=== PATIENT | male | born 1945 | race Caucasian/White ===

== ENCOUNTER 2022-05-29 21:49 | Inpatient (IN) | payer MEDICARE, BC ==
[~2022-05-29] VITALS: Ht 170.2 cm; Wt 103.0 kg
[2022-05-29 23:49] LABS: HEMATOCRIT. 28.2 % (42.0-52.0); HEMOGLOBIN. 8.8 g/dL (14.0-18.0); MEAN CORPUSCULAR HEMOGLOBIN 24.7 pg (28.0-32.0); MEAN PLATELET VOLUME 8.9 fl (7.4-10.4); PLATELET 265 x1000/uL (130-400); RED BLOOD CELL COUNT 3.57 mill/uL (4.7-6.1); RED CELL DISTRIBUTION WIDTH 22.9 % (11.6-14.6)
[2022-05-30] MEDS ORDERED: ASPIRIN 325MG EC TABLET PO ONE
[2022-05-30] MEDS ORDERED: VANCOMYCIN 1G PREMIX 200 ML IV NR (01:15)
[2022-05-30] MEDS ORDERED: PIPERACILLIN/TAZOBACTAM 3.375GM/50ML PREMIX IV NR (01:15)
[2022-05-30 02:28] LABS: PLATELET ESTIMATE NORMAL
[2022-05-30 04:31] LABS: CHLORIDE 85 mEq/L (98-107)
[2022-05-30] MEDS ORDERED: POTASSIUM CHLORIDE INJ 40 MEQ in DEXT 5% WATER 500 ML IV ONE (04:45)
[2022-05-30] MEDS ORDERED: POTASSIUM CHLORIDE 20MEQ TABLET SR PO NR (04:45)
[2022-05-30] MEDS: KCL 10MEQ/50ML PREMIX 50 ML IV NR ×3 (05:30→08:30)
[2022-05-30] MEDS ORDERED: IOHEXOL-350 100 ML BOTTLE ONE (06:03)
[2022-05-30] MEDS ORDERED: DILTIAZEM HCL 125 MG in DEXT 5% WATER 100 ML IV PRN (09:30)
[2022-05-30] MEDS ORDERED: PHENYLEPHRINE 100 MG in DEXT 5% WATER 240 ML IV PRN ×2 (09:30→09:45)
[2022-05-30] MEDS ORDERED: PIPERACILLIN/TAZOBACTAM 3.375GM/50ML PREMIX IV ONE (10:00)
[2022-05-30] MEDS: MIDODRINE HCL 5MG TABLET PO SCH ×3 (10:09→17:34)
[2022-05-30 11:21] LABS: HEMATOCRIT. 27.1 % (42.0-52.0); HEMOGLOBIN. 8.2 g/dL (14.0-18.0); MEAN PLATELET VOLUME 8.9 fl (7.4-10.4); PLATELET 228 x1000/uL (130-400); RED BLOOD CELL COUNT 3.43 mill/uL (4.7-6.1)
[2022-05-30] MEDS: DILTIAZEM HCL 60MG TABLET PO SCH ×2 (11:56→18:57)
[2022-05-30 13:00] LABS: PLATELET ESTIMATE NORMAL
[2022-05-30] MEDS ORDERED: ACETAMINOPHEN 325MG TABLET PO PRN ×2 (13:30→14:15)
[2022-05-30] MEDS ORDERED: DIPHENHYDRAMINE 50MG/ML VIAL IV NR (14:00)
[2022-05-30] MEDS ORDERED: PIPERACILLIN/TAZOBACTAM 3.375G in DEXT 5% WATER 50ML IV SCH (14:00)
[2022-05-30] MEDS ORDERED: HALOPERIDOL LACTATE 5MG/ML VIAL IM NR (14:00)
[2022-05-30] MEDS ORDERED: ONDANSETRON HCL 4MG/2ML INJ IV PRN (14:15)
[2022-05-30] MEDS: METRONIDAZOLE 500 MG PREMIX 100 ML IV SCH ×2 (14:35→21:50)
[2022-05-30] MEDS: PANTOPRAZOLE SODIUM 40 MG/VIAL IV SCH (15:00)
[2022-05-30] MEDS: SODIUM CHLORIDE 0.9% 1,000 ML IV SCH ×2 (15:01→22:32)
[2022-05-30] MEDS: MORPHINE SULFATE 2 MG/ML CPJ (NOT FOR IM USE) IV PRN ×2 (15:01→20:58)
[2022-05-30 18:04] LABS: CLARITY URINE CLEAR (CLEAR); COLOR URINE DARK YELLOW (YELLOW); KETONES URINE NEGATIVE (NEGATIVE); LEUKOCYTE ESTERASE URINE NEGATIVE (NEGATIVE); NITRITE URINE NEGATIVE (NEGATIVE); OCCULT BLOOD URINE NEGATIVE (NEGATIVE); PH URINE 5.5 (4.5-8.0); PROTEIN URINE TRACE (NEGATIVE); SPECIFIC GRAVITY URINE 1.045 (1.005-1.030)
[2022-05-30] MEDS: VANCOMYCIN 1000MG/20ML ORAL SOLN PO SCH (18:57)
[2022-05-30] MEDS: CEFEPIME 1,000 MG in DEXTROSE 5% WATER 50 ML IV SCH (18:57)
[2022-05-30] MEDS ORDERED: VANCOMYCIN 1G PREMIX 200 ML IV SCH (20:00)
[2022-05-30] MEDS ORDERED: NALOXONE HCL 0.4MG/ML VIAL IV PRN (20:45)
[2022-05-30 20:48] LABS: CHLORIDE 91 mEq/L (98-107)
[2022-05-30] MEDS ORDERED: GABAPENTIN 300MG CAPSULE PO SCH (21:00)
[2022-05-30 21:24] LABS: ETHANOL BLOOD < 10 mg/dL
[2022-05-30] MEDS: ATORVASTATIN CALCIUM 40MG TABLET PO SCH (21:50)
[2022-05-30 23:57] LABS: *AMPHETAMINES SCREEN URINE NEGATIVE (NEGATIVE); *BARBITURATES SCREEN URINE NEGATIVE (NEGATIVE); *BENZODIAZEPINES SCREEN URINE NEGATIVE (NEGATIVE); *COCAINE SCREEN URINE NEGATIVE (NEGATIVE); CANNABINOID URINE SCREEN NEGATIVE (NEGATIVE); METHADONE URINE SCREEN NEGATIVE (NEGATIVE); OPIATES URINE SCREEN PRESUMTIVE POSITIVE (NEGATIVE); PHENCYCLIDINE URINE SCREEN NEGATIVE (NEGATIVE)
[2022-05-31] VITALS (32 sets, daily range): BP systolic 70–164; BP diastolic 36–151
[2022-05-31] MEDS: DILTIAZEM HCL 60MG TABLET PO SCH ×5 (00:35→23:50)
[2022-05-31] MEDS: VANCOMYCIN 1000MG/20ML ORAL SOLN PO SCH ×5 (00:36→23:49)
[2022-05-31] MEDS: [UNRECOGNIZED DRUG - OTHER] IV SCH ×2 (01:10→04:14)
[2022-05-31] MEDS: MORPHINE SULFATE 2 MG/ML CPJ (NOT FOR IM USE) IV PRN ×3 (04:06→19:45)
[2022-05-31] MEDS: METRONIDAZOLE 500 MG PREMIX 100 ML IV SCH ×3 (06:00→21:53)
[2022-05-31 08:56] LABS: BG BASE EXCESS 2.2 mmol/L (-2.0-2.0); BG CARBOXYHEMOGLOBIN 1.1 % (0.5-1.5); BG DEOXYHEMOGLOBIN 8.1 % (0.0-5.0); BG HCO3 ACT 26.3 mmol/L (22.0-26.0); BG METHEMOGLOBIN 0.3 % (0.0-1.5); BG OXYGEN SATURATION 91.8 % (92.0-98.5); BG OXYHEMOGLOBIN 90.5 % (94.0-97.0); BG PCO2 38.9 mmHg (35.0-45.0); BG PH 7.448 (7.350-7.450); BG PO2 65.3 mmHg (75.0-100.0); BG SAMPLE SITE RIGHT RADIAL; BG TOTAL HEMOGLOBIN 9.1 g/dL (12.0-18.0); BG VENT MODE NASAL CANNULA
[2022-05-31] MEDS ORDERED: DEXT 5%/0.9% NACL KCL 30MEQ/L 1,000 ML IV SCH (09:00)
[2022-05-31] MEDS: MIDODRINE HCL 5MG TABLET PO SCH ×3 (09:00→17:21)
[2022-05-31] MEDS ORDERED: LIDOCAINE HCL 1% 30ML VIAL (10MG/ML) ONE (09:15)
[2022-05-31] MEDS ORDERED: POTASSIUM CHLORIDE INJ 30 MEQ in DEXT 5%/0.9% NACL 1,000 ML IV SCH (09:30)
[2022-05-31] MEDS: ASPIRIN 81MG TABLET PO SCH (10:04)
[2022-05-31] MEDS: PANTOPRAZOLE SODIUM 40 MG/VIAL IV SCH (10:05)
[2022-05-31] MEDS: CEFEPIME 1,000 MG in DEXTROSE 5% WATER 50 ML IV SCH ×2 (10:05→18:00)
[2022-05-31 10:38] LABS: HEMATOCRIT. 26.4 % (42.0-52.0); MEAN CORPUSCULAR HEMOGLOBIN 24.1 pg (28.0-32.0); MEAN PLATELET VOLUME 9.2 fl (7.4-10.4); PLATELET 230 x1000/uL (130-400); RED BLOOD CELL COUNT 3.31 mill/uL (4.7-6.1)
[2022-05-31] MEDS: AMIODARONE HCL 200 MG TABLET PO SCH ×2 (11:00→21:53)
[2022-05-31 11:35] LABS: PLATELET ESTIMATE NORMAL
[2022-05-31] MEDS ORDERED: FUROSEMIDE 40MG/4ML VIAL IVP NR (12:00)
[2022-05-31] MEDS ORDERED: POTASSIUM CHLORIDE INJ 40 MEQ in DEXT 5% WATER 250 ML IV NR (13:00)
[2022-05-31 19:57] LABS: CHLORIDE 95 mEq/L (98-107)
[2022-05-31 20:05] LABS: CREATINE KINASE 406 IU/L (39-308); PHOSPHORUS 2.7 mg/dL (2.5-4.9)
[2022-05-31] MEDS: IPRATROPIUM/ALBUTEROL 0.5-3(2.5)MG/3ML NEB HHN SCH (20:15)
[2022-05-31] MEDS: GABAPENTIN 300MG CAPSULE PO SCH (21:52)
[2022-05-31] MEDS: ATORVASTATIN CALCIUM 40MG TABLET PO SCH (21:53)
[2022-05-31 22:19] LABS: CHLORIDE 97 mEq/L (98-107)
[2022-05-31] MEDS ORDERED: POTASSIUM CHLORIDE 20MEQ TABLET SR PO NR (23:30)
[2022-05-31] MEDS ORDERED: MAGNESIUM 2 G PREMIX 50 ML IV NR (23:30)
[2022-06-01] VITALS (32 sets, daily range): BP systolic 98–132; BP diastolic 24–72
[2022-06-01 00:13] LABS: CHLORIDE 97 mEq/L (98-107)
[2022-06-01] MEDS: IPRATROPIUM/ALBUTEROL 0.5-3(2.5)MG/3ML NEB HHN SCH ×4 (02:04→20:49)
[2022-06-01] MEDS: MORPHINE SULFATE 2 MG/ML CPJ (NOT FOR IM USE) IV PRN ×4 (03:31→22:47)
[2022-06-01 06:30] LABS: HEMATOCRIT. 23.6 % (42.0-52.0); HEMOGLOBIN. 7.4 g/dL (14.0-18.0); MEAN CORPUSCULAR HEMOGLOBIN 25.1 pg (28.0-32.0); MEAN CORPUSCULAR VOLUME 80.3 fL (80.0-94.0); MEAN PLATELET VOLUME 9.2 fl (7.4-10.4); PLATELET 156 x1000/uL (130-400); RED BLOOD CELL COUNT 2.94 mill/uL (4.7-6.1); RED CELL DISTRIBUTION WIDTH 22.5 % (11.6-14.6)
[2022-06-01 06:33] LABS: INR 1.1; PROTHROMBIN TIME 12.1 sec (9.6-11.0)
[2022-06-01] MEDS: VANCOMYCIN 1000MG/20ML ORAL SOLN PO SCH ×3 (06:46→18:54)
[2022-06-01] MEDS: CEFEPIME 1,000 MG in DEXTROSE 5% WATER 50 ML IV SCH ×2 (06:46→18:54)
[2022-06-01] MEDS: DILTIAZEM HCL 60MG TABLET PO SCH ×3 (06:47→17:02)
[2022-06-01] MEDS: METRONIDAZOLE 500 MG PREMIX 100 ML IV SCH ×3 (06:47→22:12)
[2022-06-01 08:18] LABS: BG BASE EXCESS 6.9 mmol/L (-2.0-2.0); BG FRACTION INSPIRED OXYGEN 38; BG HCO3 ACT 31.1 mmol/L (22.0-26.0); BG METHEMOGLOBIN 0.2 % (0.0-1.5); BG OXYGEN SATURATION 90.9 % (92.0-98.5); BG OXYHEMOGLOBIN 89.8 % (94.0-97.0); BG PCO2 42.7 mmHg (35.0-45.0); BG PO2 60.3 mmHg (75.0-100.0); BG SAMPLE SITE LEFT RADIAL; BG TOTAL HEMOGLOBIN 8.7 g/dL (12.0-18.0); BG VENT MODE NASAL CANNULA
[2022-06-01 08:38] LABS: CHLORIDE 98 mEq/L (98-107)
[2022-06-01 08:42] LABS: PHOSPHORUS 1.7 mg/dL (2.5-4.9)
[2022-06-01] MEDS: ASPIRIN 81MG TABLET PO SCH (09:15)
[2022-06-01] MEDS: PANTOPRAZOLE SODIUM 40 MG/VIAL IV SCH (09:16)
[2022-06-01] MEDS: GABAPENTIN 300MG CAPSULE PO SCH ×3 (09:16→17:01)
[2022-06-01] MEDS: AMIODARONE HCL 200 MG TABLET PO SCH ×2 (09:16→22:11)
[2022-06-01] MEDS: MIDODRINE HCL 5MG TABLET PO SCH ×3 (09:17→17:01)
[2022-06-01 13:13] LABS: PLATELET ESTIMATE NORMAL
[2022-06-01] MEDS ORDERED: FUROSEMIDE 40MG/4ML VIAL IVP SCH (14:00)
[2022-06-01 16:28] LABS: TOTAL IRON BINDING CAPACITY 272 ug/dL (250-450)
[2022-06-01 17:21] LABS: VITAMIN B12 SERUM >2000 pg/mL pg/mL (211-911)
[2022-06-01 17:25] LABS: FERRITIN 183 ng/mL (22-322)
[2022-06-01] MEDS: ATORVASTATIN CALCIUM 40MG TABLET PO SCH (22:11)
[2022-06-02] VITALS (32 sets, daily range): BP systolic 92–162; BP diastolic 51–84
[2022-06-02] MEDS: IPRATROPIUM/ALBUTEROL 0.5-3(2.5)MG/3ML NEB HHN SCH ×4 (01:22→20:57)
[2022-06-02] MEDS: VANCOMYCIN 1000MG/20ML ORAL SOLN PO SCH ×5 (01:25→23:28)
[2022-06-02 05:44] LABS: HEMATOCRIT. 27.7 % (42.0-52.0); HEMOGLOBIN. 8.7 g/dL (14.0-18.0); MEAN CORPUSCULAR HEMOGLOBIN 25.4 pg (28.0-32.0); MEAN CORPUSCULAR VOLUME 80.7 fL (80.0-94.0); MEAN PLATELET VOLUME 9.3 fl (7.4-10.4); PLATELET 156 x1000/uL (130-400); RED BLOOD CELL COUNT 3.43 mill/uL (4.7-6.1); RED CELL DISTRIBUTION WIDTH 22.1 % (11.6-14.6)
[2022-06-02 05:56] LABS: CHLORIDE 96 mEq/L (98-107)
[2022-06-02 06:07] LABS: PHOSPHORUS 1.8 mg/dL (2.5-4.9)
[2022-06-02] MEDS: METRONIDAZOLE 500 MG PREMIX 100 ML IV SCH ×3 (06:11→21:18)
[2022-06-02] MEDS: CEFEPIME 1,000 MG in DEXTROSE 5% WATER 50 ML IV SCH ×2 (06:11→18:14)
[2022-06-02] MEDS: DILTIAZEM HCL 60MG TABLET PO SCH ×5 (06:12→23:28)
[2022-06-02] MEDS: MORPHINE SULFATE 2 MG/ML CPJ (NOT FOR IM USE) IV PRN (07:19)
[2022-06-02] MEDS ORDERED: POTASSIUM CHLORIDE 20MEQ TABLET SR PO NR ×2 (08:30→18:00)
[2022-06-02] MEDS: PANTOPRAZOLE SODIUM 40 MG/VIAL IV SCH (08:59)
[2022-06-02] MEDS: GABAPENTIN 300MG CAPSULE PO SCH ×3 (09:00→18:09)
[2022-06-02] MEDS: MIDODRINE HCL 5MG TABLET PO SCH ×3 (09:00→18:09)
[2022-06-02] MEDS: AMIODARONE HCL 200 MG TABLET PO SCH ×2 (09:00→21:19)
[2022-06-02] MEDS: ASPIRIN 81MG TABLET PO SCH (09:00)
[2022-06-02] MEDS ORDERED: POTASSIUM PHOS,M-BASIC-D-BASIC 20 MMOL in DEXT 5% WATER 243.3333 ML IV NR (09:30)
[2022-06-02 10:57] LABS: PLATELET ESTIMATE NORMAL
[2022-06-02] MEDS ORDERED: FUROSEMIDE 40MG/4ML VIAL IVP NR (11:15)
[2022-06-02 17:40] LABS: BG BASE EXCESS 6.7 mmol/L (-2.0-2.0); BG CARBOXYHEMOGLOBIN 0.4 % (0.5-1.5); BG FRACTION INSPIRED OXYGEN 100; BG HCO3 ACT 31.9 mmol/L (22.0-26.0); BG METHEMOGLOBIN 0.3 % (0.0-1.5); BG OXYHEMOGLOBIN 98.3 % (94.0-97.0); BG PCO2 49.1 mmHg (35.0-45.0); BG PH 7.431 (7.350-7.450); BG PO2 166.9 mmHg (75.0-100.0); BG SAMPLE SITE LEFT RADIAL; BG TOTAL HEMOGLOBIN 10.3 g/dL (12.0-18.0); BG VENT MODE MASK - NRB
[2022-06-02] MEDS: ATORVASTATIN CALCIUM 40MG TABLET PO SCH (21:19)
[2022-06-03] VITALS (11 sets, daily range): BP systolic 108–125; BP diastolic 55–67
[2022-06-03] MEDS: MORPHINE SULFATE 2 MG/ML CPJ (NOT FOR IM USE) IV PRN ×3 (03:15→22:48)
[2022-06-03] MEDS: IPRATROPIUM/ALBUTEROL 0.5-3(2.5)MG/3ML NEB HHN SCH ×4 (03:16→21:28)
[2022-06-03 05:47] LABS: HEMATOCRIT. 25.9 % (42.0-52.0); HEMOGLOBIN. 8.2 g/dL (14.0-18.0); MEAN CORPUSCULAR HEMOGLOBIN 25.3 pg (28.0-32.0); MEAN CORPUSCULAR VOLUME 79.6 fL (80.0-94.0); MEAN PLATELET VOLUME 9.3 fl (7.4-10.4); PLATELET 169 x1000/uL (130-400); RED BLOOD CELL COUNT 3.26 mill/uL (4.7-6.1); RED CELL DISTRIBUTION WIDTH 22.3 % (11.6-14.6)
[2022-06-03] MEDS: DILTIAZEM HCL 60MG TABLET PO SCH ×3 (05:48→17:23)
[2022-06-03] MEDS: CEFEPIME 1,000 MG in DEXTROSE 5% WATER 50 ML IV SCH ×2 (05:48→17:22)
[2022-06-03] MEDS: METRONIDAZOLE 500 MG PREMIX 100 ML IV SCH (05:48)
[2022-06-03] MEDS: VANCOMYCIN 1000MG/20ML ORAL SOLN PO SCH ×2 (05:49→17:22)
[2022-06-03 07:29] LABS: CHLORIDE 97 mEq/L (98-107)
[2022-06-03] MEDS: ASPIRIN 81MG TABLET PO SCH (08:43)
[2022-06-03] MEDS: PANTOPRAZOLE SODIUM 40 MG/VIAL IV SCH (08:43)
[2022-06-03] MEDS: MIDODRINE HCL 5MG TABLET PO SCH ×3 (08:44→17:23)
[2022-06-03] MEDS: AMIODARONE HCL 200 MG TABLET PO SCH ×2 (08:44→22:44)
[2022-06-03] MEDS: GABAPENTIN 300MG CAPSULE PO SCH ×3 (08:44→17:00)
[2022-06-03 09:55] LABS: BG BASE EXCESS -0.1 mmol/L (-2.0-2.0); BG CARBOXYHEMOGLOBIN 0.5 % (0.5-1.5); BG DEOXYHEMOGLOBIN 5.9 % (0.0-5.0); BG HCO3 ACT 24.2 mmol/L (22.0-26.0); BG METHEMOGLOBIN 0.1 % (0.0-1.5); BG OXYGEN SATURATION 94.1 % (92.0-98.5); BG OXYHEMOGLOBIN 93.5 % (94.0-97.0); BG PCO2 38.3 mmHg (35.0-45.0); BG PH 7.419 (7.350-7.450); BG PO2 73.7 mmHg (75.0-100.0); BG SAMPLE SITE RIGHT BRACHIAL; BG TOTAL HEMOGLOBIN 10.1 g/dL (12.0-18.0); BG VENT MODE MASK - NRB
[2022-06-03] MEDS ORDERED: FUROSEMIDE 40MG/4ML VIAL IVP SCH ×2 (10:00→17:00)
[2022-06-03] MEDS ORDERED: METHYLPREDNISOLONE SOD SUCC 40 MG/ML VIAL IV NR (10:30)
[2022-06-03 13:18] LABS: PLATELET ESTIMATE NORMAL
[2022-06-03] MEDS: ATORVASTATIN CALCIUM 40MG TABLET PO SCH (22:43)
[2022-06-03] MEDS: METRONIDAZOLE 500MG TABLET PO SCH (22:43)
[2022-06-03] MEDS: DIPHENHYDRAMINE 50MG CAPSULE PO PRN (22:48)
[2022-06-04] VITALS (14 sets, daily range): BP systolic 102–124; BP diastolic 44–76
[2022-06-04] MEDS: VANCOMYCIN 1000MG/20ML ORAL SOLN PO SCH ×5 (00:30→23:53)
[2022-06-04] MEDS: IPRATROPIUM/ALBUTEROL 0.5-3(2.5)MG/3ML NEB HHN SCH ×4 (01:32→19:44)
[2022-06-04] MEDS: DILTIAZEM HCL 60MG TABLET PO SCH ×5 (06:00→23:50)
[2022-06-04] MEDS: CEFEPIME 1,000 MG in DEXTROSE 5% WATER 50 ML IV SCH (06:26)
[2022-06-04 06:29] LABS: HEMATOCRIT. 27.4 % (42.0-52.0); HEMOGLOBIN. 8.9 g/dL (14.0-18.0); MEAN CORPUSCULAR HEMOGLOBIN 25.9 pg (28.0-32.0); MEAN CORPUSCULAR VOLUME 79.8 fL (80.0-94.0); MEAN PLATELET VOLUME 9.3 fl (7.4-10.4); PLATELET 179 x1000/uL (130-400); RED BLOOD CELL COUNT 3.44 mill/uL (4.7-6.1); RED CELL DISTRIBUTION WIDTH 22.2 % (11.6-14.6)
[2022-06-04 08:32] LABS: CHLORIDE 99 mEq/L (98-107)
[2022-06-04] MEDS: AMIODARONE HCL 200 MG TABLET PO SCH ×2 (10:22→22:17)
[2022-06-04] MEDS: MORPHINE SULFATE 2 MG/ML CPJ (NOT FOR IM USE) IV PRN (10:22)
[2022-06-04] MEDS: ASPIRIN 81MG TABLET PO SCH (10:22)
[2022-06-04] MEDS: METRONIDAZOLE 500MG TABLET PO SCH ×2 (10:22→22:18)
[2022-06-04] MEDS: PANTOPRAZOLE SODIUM 40 MG/VIAL IV SCH (10:22)
[2022-06-04] MEDS: MIDODRINE HCL 5MG TABLET PO SCH ×3 (10:23→17:59)
[2022-06-04] MEDS: GABAPENTIN 300MG CAPSULE PO SCH ×3 (10:23→17:59)
[2022-06-04] MEDS: FUROSEMIDE 40MG/4ML VIAL IVP SCH ×2 (11:54→17:59)
[2022-06-04] MEDS: OSELTAMIVIR 75MG CAPSULE PO SCH ×2 (13:30→22:18)
[2022-06-04] MEDS ORDERED: HYDROCODONE/ACETAMINOPHEN 7.5/325MG TABLET PO PRN ×2 (15:00)
[2022-06-04] MEDS: HYDROCODONE/ACETAMINOPHEN 7.5/325MG TABLET PO PRN ×2 (15:12→22:58)
[2022-06-04 21:21] LABS: PLATELET ESTIMATE NORMAL
[2022-06-04] MEDS: ATORVASTATIN CALCIUM 40MG TABLET PO SCH (22:18)
[2022-06-04] MEDS: DIPHENHYDRAMINE 50MG CAPSULE PO PRN (23:53)
[2022-06-05] VITALS (13 sets, daily range): BP systolic 94–120; BP diastolic 48–62
[2022-06-05] MEDS: IPRATROPIUM/ALBUTEROL 0.5-3(2.5)MG/3ML NEB HHN SCH ×4 (01:25→20:46)
[2022-06-05] MEDS: DILTIAZEM HCL 60MG TABLET PO SCH ×3 (05:53→17:00)
[2022-06-05] MEDS: VANCOMYCIN 1000MG/20ML ORAL SOLN PO SCH ×3 (05:54→17:00)
[2022-06-05 06:17] LABS: HEMOGLOBIN. 9.1 g/dL (14.0-18.0); MEAN CORPUSCULAR HEMOGLOBIN 26.1 pg (28.0-32.0); MEAN CORPUSCULAR VOLUME 80.6 fL (80.0-94.0); PLATELET 206 x1000/uL (130-400); RED BLOOD CELL COUNT 3.47 mill/uL (4.7-6.1); RED CELL DISTRIBUTION WIDTH 22.3 % (11.6-14.6)
[2022-06-05 06:22] LABS: INR 1.2; PROTHROMBIN TIME 12.7 sec (9.6-11.0)
[2022-06-05 08:22] LABS: CHLORIDE 95 mEq/L (98-107)
[2022-06-05] MEDS: PANTOPRAZOLE SODIUM 40 MG/VIAL IV SCH (08:43)
[2022-06-05] MEDS: ASPIRIN 81MG TABLET PO SCH (08:43)
[2022-06-05] MEDS: OSELTAMIVIR 75MG CAPSULE PO SCH ×2 (08:44→21:27)
[2022-06-05] MEDS: METRONIDAZOLE 500MG TABLET PO SCH ×2 (08:44→21:27)
[2022-06-05] MEDS: GABAPENTIN 300MG CAPSULE PO SCH ×3 (08:44→17:00)
[2022-06-05] MEDS: FUROSEMIDE 40MG/4ML VIAL IVP SCH ×2 (08:44→16:59)
[2022-06-05] MEDS: MIDODRINE HCL 5MG TABLET PO SCH ×3 (08:45→16:59)
[2022-06-05] MEDS: AMIODARONE HCL 200 MG TABLET PO SCH ×2 (08:51→21:27)
[2022-06-05] MEDS ORDERED: LORAZEPAM 1MG TABLET PO PRN (10:45)
[2022-06-05] MEDS: HYDROCODONE/ACETAMINOPHEN 7.5/325MG TABLET PO PRN (11:35)
[2022-06-05 14:40] LABS: PLATELET ESTIMATE NORMAL
[2022-06-05] MEDS: ATORVASTATIN CALCIUM 40MG TABLET PO SCH (21:27)
[2022-06-06] VITALS (11 sets, daily range): BP systolic 95–152; BP diastolic 44–73
[2022-06-06] MEDS: VANCOMYCIN 1000MG/20ML ORAL SOLN PO SCH ×4 (00:55→18:07)
[2022-06-06] MEDS: DILTIAZEM HCL 60MG TABLET PO SCH ×4 (00:55→18:06)
[2022-06-06] MEDS: IPRATROPIUM/ALBUTEROL 0.5-3(2.5)MG/3ML NEB HHN SCH ×4 (01:22→20:58)
[2022-06-06] MEDS: HYDROCODONE/ACETAMINOPHEN 7.5/325MG TABLET PO PRN ×2 (04:13→16:32)
[2022-06-06 08:49] LABS: HEMATOCRIT. 27.1 % (42.0-52.0); HEMOGLOBIN. 8.5 g/dL (14.0-18.0); MEAN CORPUSCULAR HEMOGLOBIN 25.4 pg (28.0-32.0); MEAN CORPUSCULAR VOLUME 80.7 fL (80.0-94.0); MEAN PLATELET VOLUME 9.1 fl (7.4-10.4); PLATELET 226 x1000/uL (130-400); RED BLOOD CELL COUNT 3.36 mill/uL (4.7-6.1); RED CELL DISTRIBUTION WIDTH 22.2 % (11.6-14.6)
[2022-06-06] MEDS: ASPIRIN 81MG TABLET PO SCH (09:25)
[2022-06-06] MEDS: METRONIDAZOLE 500MG TABLET PO SCH ×2 (09:26→21:16)
[2022-06-06] MEDS: MIDODRINE HCL 5MG TABLET PO SCH ×4 (09:26→16:34)
[2022-06-06] MEDS: GABAPENTIN 300MG CAPSULE PO SCH ×3 (09:27→16:34)
[2022-06-06] MEDS: FUROSEMIDE 40MG/4ML VIAL IVP SCH ×2 (09:27→16:34)
[2022-06-06] MEDS: AMIODARONE HCL 200 MG TABLET PO SCH ×2 (09:27→21:15)
[2022-06-06] MEDS: OSELTAMIVIR 75MG CAPSULE PO SCH ×2 (09:27→21:16)
[2022-06-06] MEDS: PANTOPRAZOLE SODIUM 40 MG/VIAL IV SCH (09:27)
[2022-06-06 09:30] LABS: CHLORIDE 95 mEq/L (98-107)
[2022-06-06] MEDS ORDERED: REGADENOSON 0.4 MG/5 ML IV NR (10:30)
[2022-06-06 12:17] LABS: NUCLEATED RED BLOOD CELLS 1 /100 WBC; PLATELET ESTIMATE NORMAL
[2022-06-06] MEDS: ATORVASTATIN CALCIUM 40MG TABLET PO SCH (21:16)
[2022-06-07] VITALS (28 sets, daily range): BP systolic 108–147; BP diastolic 41–63
[2022-06-07] MEDS: DIPHENHYDRAMINE 50MG CAPSULE PO PRN ×2 (00:26→22:38)
[2022-06-07] MEDS: VANCOMYCIN 1000MG/20ML ORAL SOLN PO SCH ×4 (00:27→17:31)
[2022-06-07] MEDS: IPRATROPIUM/ALBUTEROL 0.5-3(2.5)MG/3ML NEB HHN SCH ×4 (00:58→20:42)
[2022-06-07] MEDS: DILTIAZEM HCL 60MG TABLET PO SCH ×2 (06:02)
[2022-06-07] MEDS: GABAPENTIN 300MG CAPSULE PO SCH ×3 (08:17→17:28)
[2022-06-07] MEDS: FUROSEMIDE 40MG/4ML VIAL IVP SCH (08:17)
[2022-06-07] MEDS: METRONIDAZOLE 500MG TABLET PO SCH ×2 (08:17→21:55)
[2022-06-07] MEDS: PANTOPRAZOLE SODIUM 40 MG/VIAL IV SCH (08:17)
[2022-06-07] MEDS: ASPIRIN 81MG TABLET PO SCH (08:17)
[2022-06-07] MEDS: AMIODARONE HCL 200 MG TABLET PO SCH ×2 (08:17→21:55)
[2022-06-07] MEDS: OSELTAMIVIR 75MG CAPSULE PO SCH ×2 (08:18→21:55)
[2022-06-07] MEDS: MIDODRINE HCL 5MG TABLET PO SCH ×3 (08:18→17:29)
[2022-06-07 09:02] LABS: HEMATOCRIT. 24.9 % (42.0-52.0); MEAN CORPUSCULAR HEMOGLOBIN 25.6 pg (28.0-32.0); MEAN CORPUSCULAR VOLUME 79.6 fL (80.0-94.0); MEAN PLATELET VOLUME 9.2 fl (7.4-10.4); PLATELET 186 x1000/uL (130-400); RED BLOOD CELL COUNT 3.12 mill/uL (4.7-6.1); RED CELL DISTRIBUTION WIDTH 21.8 % (11.6-14.6)
[2022-06-07 09:16] LABS: CHLORIDE 96 mEq/L (98-107)
[2022-06-07] MEDS ORDERED: REGADENOSON 0.4 MG/5 ML IV ONE ×2 (10:51→13:30)
[2022-06-07] MEDS ORDERED: SODIUM CHLORIDE 0.45% 500 ML IV ONE (11:15)
[2022-06-07] MEDS ORDERED: FUROSEMIDE 40MG/4ML VIAL IVP SCH (11:15)
[2022-06-07 13:08] LABS: PLATELET ESTIMATE NORMAL
[2022-06-07] MEDS: ATORVASTATIN CALCIUM 40MG TABLET PO SCH (21:55)
[2022-06-08] VITALS (13 sets, daily range): BP systolic 110–148; BP diastolic 52–114
[2022-06-08] MEDS: VANCOMYCIN 1000MG/20ML ORAL SOLN PO SCH ×4 (00:32→17:00)
[2022-06-08] MEDS: IPRATROPIUM/ALBUTEROL 0.5-3(2.5)MG/3ML NEB HHN SCH ×4 (00:47→20:31)
[2022-06-08] MEDS: HYDROCODONE/ACETAMINOPHEN 7.5/325MG TABLET PO PRN ×2 (06:10→16:58)
[2022-06-08 09:37] LABS: CHLORIDE 98 mEq/L (98-107)
[2022-06-08 09:44] LABS: HEMATOCRIT. 27.7 % (42.0-52.0); HEMOGLOBIN. 8.7 g/dL (14.0-18.0); MEAN CORPUSCULAR VOLUME 79.5 fL (80.0-94.0); PLATELET 216 x1000/uL (130-400); RED BLOOD CELL COUNT 3.48 mill/uL (4.7-6.1); RED CELL DISTRIBUTION WIDTH 22.3 % (11.6-14.6)
[2022-06-08] MEDS: GABAPENTIN 300MG CAPSULE PO SCH ×3 (09:49→17:03)
[2022-06-08] MEDS: AMIODARONE HCL 200 MG TABLET PO SCH ×2 (09:50→21:00)
[2022-06-08] MEDS: METRONIDAZOLE 500MG TABLET PO SCH ×2 (09:50→21:00)
[2022-06-08] MEDS: ASPIRIN 81MG TABLET PO SCH (09:50)
[2022-06-08] MEDS: PANTOPRAZOLE SODIUM 40 MG/VIAL IV SCH (09:50)
[2022-06-08] MEDS: OSELTAMIVIR 75MG CAPSULE PO SCH ×2 (09:51→21:00)
[2022-06-08] MEDS: MIDODRINE HCL 5MG TABLET PO SCH ×3 (09:52→17:00)
[2022-06-08] MEDS ORDERED: POTASSIUM CHLORIDE 20MEQ TABLET SR PO NR (10:15)
[2022-06-08] MEDS ORDERED: NALOXONE HCL 0.4MG/ML VIAL IV PRN (10:15)
[2022-06-08 12:36] LABS: PLATELET ESTIMATE NORMAL
[2022-06-08] MEDS: ATORVASTATIN CALCIUM 40MG TABLET PO SCH (21:00)
[2022-06-08] MEDS: DIPHENHYDRAMINE 50MG CAPSULE PO PRN (21:00)
[2022-06-09] VITALS (11 sets, daily range): BP systolic 120–143; BP diastolic 44–75
[2022-06-09] MEDS: VANCOMYCIN 1000MG/20ML ORAL SOLN PO SCH ×3 (00:42→11:42)
[2022-06-09] MEDS: IPRATROPIUM/ALBUTEROL 0.5-3(2.5)MG/3ML NEB HHN SCH ×3 (01:15→13:38)
[2022-06-09 07:59] LABS: HEMATOCRIT. 28.7 % (42.0-52.0); HEMOGLOBIN. 8.9 g/dL (14.0-18.0); MEAN CORPUSCULAR HEMOGLOBIN 24.9 pg (28.0-32.0); MEAN CORPUSCULAR VOLUME 80.2 fL (80.0-94.0); MEAN PLATELET VOLUME 9.5 fl (7.4-10.4); PLATELET 212 x1000/uL (130-400); RED BLOOD CELL COUNT 3.58 mill/uL (4.7-6.1); RED CELL DISTRIBUTION WIDTH 22.1 % (11.6-14.6)
[2022-06-09 08:33] LABS: CHLORIDE 99 mEq/L (98-107)
[2022-06-09 08:43] LABS: PHOSPHORUS 2.1 mg/dL (2.5-4.9)
[2022-06-09] MEDS: MIDODRINE HCL 5MG TABLET PO SCH ×2 (09:22→15:10)
[2022-06-09] MEDS: ASPIRIN 81MG TABLET PO SCH (09:22)
[2022-06-09] MEDS: PANTOPRAZOLE SODIUM 40 MG/VIAL IV SCH (09:22)
[2022-06-09] MEDS: GABAPENTIN 300MG CAPSULE PO SCH ×2 (09:22→15:10)
[2022-06-09] MEDS: AMIODARONE HCL 200 MG TABLET PO SCH (09:22)
[2022-06-09] MEDS: OSELTAMIVIR 75MG CAPSULE PO SCH (09:22)
[2022-06-09] MEDS: HYDROCODONE/ACETAMINOPHEN 7.5/325MG TABLET PO PRN (11:00)
[2022-06-09] MEDS ORDERED: SODIUM PHOS,M-BASIC-D-BASIC 15 MM in DEXT 5% WATER 245 ML IV NR (11:00)
[2022-06-09 13:08] LABS: NUCLEATED RED BLOOD CELLS 2 /100 WBC
[2022-06-09 13:09] LABS: PLATELET ESTIMATE NORMAL
== END 2022-06-09 16:30 | DRG 871 ==
LOC: ER 21:49 → MICUSO 05-30 04:51 → EDBEDREQSVC 05-30 12:01 → CVICU 05-31 03:51 → 5EST 06-02 16:08
PROVIDERS: ADMIT Internal Medicine; ATTEND Internal Medicine
PROC: 02HV33Z Insertion of Infusion Device into Superior Vena Cava, Percutaneous Approach (ICD-10-PCS; 2022-05-31)
PROC: B548ZZA Ultrasonography of Superior Vena Cava, Guidance (ICD-10-PCS; 2022-05-31)
PROC: 30233N1 Transfusion of Nonautologous Red Blood Cells into Peripheral Vein, Percutaneous Approach (ICD-10-PCS; principal; 2022-06-01)
DX: A41.4 Sepsis due to anaerobes (principal); G93.41 Metabolic encephalopathy; I21.4 Non-ST elevation (NSTEMI) myocardial infarction; J96.01 Acute respiratory failure with hypoxia; A04.72 Enterocolitis due to Clostridium difficile, not specified as recurrent; I50.20 Unspecified systolic (congestive) heart failure; I42.9 Cardiomyopathy, unspecified; N17.9 Acute kidney failure, unspecified; J98.11 Atelectasis; K57.32 Diverticulitis of large intestine without perforation or abscess without bleeding; M62.82 Rhabdomyolysis; I45.10 Unspecified right bundle-branch block; Z20.822 Contact with and (suspected) exposure to COVID-19; I48.91 Unspecified atrial fibrillation; E87.6 Hypokalemia; R65.20 Severe sepsis without septic shock; M06.9 Rheumatoid arthritis, unspecified; I65.23 Occlusion and stenosis of bilateral carotid arteries; K80.50 Calculus of bile duct without cholangitis or cholecystitis without obstruction; K80.70 Calculus of gallbladder and bile duct without cholecystitis without obstruction; I95.9 Hypotension, unspecified; E11.51 Type 2 diabetes mellitus with diabetic peripheral angiopathy without gangrene; E11.40 Type 2 diabetes mellitus with diabetic neuropathy, unspecified; I25.10 Atherosclerotic heart disease of native coronary artery without angina pectoris; G89.29 Other chronic pain; R10.84 Generalized abdominal pain; R26.9 Unspecified abnormalities of gait and mobility; D50.9 Iron deficiency anemia, unspecified; K25.9 Gastric ulcer, unspecified as acute or chronic, without hemorrhage or perforation; J10.1 Influenza due to other identified influenza virus with other respiratory manifestations; E86.1 Hypovolemia; I27.20 Pulmonary hypertension, unspecified; I35.0 Nonrheumatic aortic (valve) stenosis; M81.0 Age-related osteoporosis without current pathological fracture; Z90.49 Acquired absence of other specified parts of digestive tract; Z87.11 Personal history of peptic ulcer disease; Z87.891 Personal history of nicotine dependence; Z79.899 Other long term (current) drug therapy
CPT/HCPCS: 36415; 36573; 36600; 70496; 70498; 71045; 74176; 74181; 76700; 78452; 80048; 80053; 80061; 80076; 80305; 80320; 81003; 82248; 82270; 82375; 82550; 82607; 82728; 82746; 82805; 83540; 83550; 83605; 83735; 83880; 84100; 84145; 84443; 84484; 85025; 85044; 86850; 86900; 86920; 87426; 87493; 87804; 93005; 93306; 93880; 94640; 97162; 97166; 97530; 99291; A6261; A9500; C1725; C9113; J0692; J1940; J2270; J2370; J2405; J2543; J2785; J2920; J3370; J3475; J3480; J3490; J7042; J7060; P9016; Q0163; Q9967; A4315; G0480

== ENCOUNTER 2022-06-09 17:30 | Inpatient (IN) | payer MEDICARE, BC ==
[~2022-06-09] VITALS: Ht 170.2 cm; Wt 103.0 kg
[2022-06-09 17:05] VITALS: BP 130/58
[2022-06-09] MEDS ORDERED: ACETAMINOPHEN 325MG TABLET PO PRN ×2 (18:45)
[2022-06-09] MEDS ORDERED: NALOXONE HCL 0.4 MG/ML 1ML VIAL IV PRN (18:45)
[2022-06-09] MEDS ORDERED: ONDANSETRON HCL 4MG TABLET PO PRN (18:45)
[2022-06-09 20:00] VITALS: BP_SYST 137; BP_DIAS 74; BP_DIAS 78
[2022-06-09] MEDS: HYDROCODONE/ACETAMINOPHEN 7.5/325MG TABLET PO PRN (20:01)
[2022-06-09] MEDS ORDERED: OSELTAMIVIR 75MG CAPSULE PO SCH (21:00)
[2022-06-09] MEDS ORDERED: ZOLPIDEM TARTRATE 5MG TABLET PO PRN (21:00)
[2022-06-09] MEDS ORDERED: TEMAZEPAM 15MG CAPSULE PO PRN (21:15)
[2022-06-09] MEDS: AMIODARONE HCL 200 MG TABLET PO SCH (21:48)
[2022-06-09] MEDS: METRONIDAZOLE 500MG TABLET PO SCH (21:48)
[2022-06-09] MEDS: ATORVASTATIN CALCIUM 40MG TABLET PO SCH (21:49)
[2022-06-10] MEDS: IPRATROPIUM/ALBUTEROL 0.5-3(2.5)MG/3ML NEB HHN SCH ×4 (01:04→20:25)
[2022-06-10] MEDS: HYDROCODONE/ACETAMINOPHEN 7.5/325MG TABLET PO PRN ×3 (01:59→18:43)
[2022-06-10] MEDS: VANCOMYCIN 1000MG/20ML ORAL SOLN PO SCH ×5 (01:59→23:26)
[2022-06-10] MEDS: PANTOPRAZOLE 40MG DR TABLET PO SCH (06:25)
[2022-06-10 07:17] LABS: CHLORIDE 98 mEq/L (98-107)
[2022-06-10 07:19] LABS: HEMOGLOBIN. 8.9 g/dL (14.0-18.0); MEAN CORPUSCULAR HEMOGLOBIN 25.4 pg (28.0-32.0); MEAN CORPUSCULAR VOLUME 80.5 fL (80.0-94.0); MEAN PLATELET VOLUME 9.1 fl (7.4-10.4); PLATELET 197 x1000/uL (130-400); RED BLOOD CELL COUNT 3.48 mill/uL (4.7-6.1); RED CELL DISTRIBUTION WIDTH 22.3 % (11.6-14.6)
[2022-06-10 08:00] VITALS: BP 142/64
[2022-06-10] MEDS: GABAPENTIN 300MG CAPSULE PO SCH ×3 (09:00→17:27)
[2022-06-10] MEDS: AMIODARONE HCL 200 MG TABLET PO SCH ×2 (09:00→20:44)
[2022-06-10] MEDS: MIDODRINE HCL 5MG TABLET PO SCH ×3 (09:01→17:31)
[2022-06-10] MEDS: METRONIDAZOLE 500MG TABLET PO SCH (09:01)
[2022-06-10] MEDS: ASPIRIN 81MG TABLET PO SCH (09:01)
[2022-06-10] MEDS: FUROSEMIDE 40MG TABLET PO SCH (09:02)
[2022-06-10 18:25] LABS: NUCLEATED RED BLOOD CELLS 1 /100 WBC; PLATELET ESTIMATE NORMAL
[2022-06-10] MEDS: ATORVASTATIN CALCIUM 40MG TABLET PO SCH (20:43)
[2022-06-11] MEDS: HYDROCODONE/ACETAMINOPHEN 7.5/325MG TABLET PO PRN ×3 (00:05→18:45)
[2022-06-11] MEDS: IPRATROPIUM/ALBUTEROL 0.5-3(2.5)MG/3ML NEB HHN SCH ×4 (02:12→21:47)
[2022-06-11] MEDS: VANCOMYCIN 1000MG/20ML ORAL SOLN PO SCH ×4 (06:17→23:25)
[2022-06-11] MEDS: PANTOPRAZOLE 40MG DR TABLET PO SCH (06:17)
[2022-06-11 06:49] LABS: HEMATOCRIT. 26.6 % (42.0-52.0); HEMOGLOBIN. 8.3 g/dL (14.0-18.0); MEAN CORPUSCULAR HEMOGLOBIN 24.9 pg (28.0-32.0); MEAN CORPUSCULAR VOLUME 80.1 fL (80.0-94.0); MEAN PLATELET VOLUME 8.9 fl (7.4-10.4); PLATELET 179 x1000/uL (130-400); RED BLOOD CELL COUNT 3.33 mill/uL (4.7-6.1)
[2022-06-11 07:06] LABS: FERRITIN 98 ng/mL (22-322); PROSTRATE SPECIFIC AG TOTAL 3.72 ng/mL (0.0-4.0)
[2022-06-11 08:00] VITALS: BP 141/63
[2022-06-11 08:14] LABS: CHLORIDE 96 mEq/L (98-107)
[2022-06-11] MEDS: PREDNISONE 10MG TABLET PO SCH (08:25)
[2022-06-11] MEDS: ASPIRIN 81MG TABLET PO SCH (08:25)
[2022-06-11] MEDS: AMIODARONE HCL 200 MG TABLET PO SCH ×2 (08:25→09:00)
[2022-06-11] MEDS: MIDODRINE HCL 5MG TABLET PO SCH ×3 (08:26→17:15)
[2022-06-11] MEDS: FUROSEMIDE 40MG TABLET PO SCH (08:26)
[2022-06-11] MEDS: GABAPENTIN 300MG CAPSULE PO SCH ×3 (08:35→16:15)
[2022-06-11 08:45] LABS: TOTAL IRON BINDING CAPACITY 240 ug/dL (250-450)
[2022-06-11 14:42] LABS: PLATELET ESTIMATE NORMAL
[2022-06-11 14:58] LABS: VITAMIN B12 SERUM >2000 pg/mL pg/mL (211-911)
[2022-06-11] MEDS: FERROUS SULFATE 325MG TABLET PO SCH (16:15)
[2022-06-11 20:00] VITALS: BP 124/50
[2022-06-11] MEDS: ATORVASTATIN CALCIUM 40MG TABLET PO SCH (20:12)
[2022-06-12] MEDS: IPRATROPIUM/ALBUTEROL 0.5-3(2.5)MG/3ML NEB HHN SCH ×4 (01:23→20:45)
[2022-06-12] MEDS: VANCOMYCIN 1000MG/20ML ORAL SOLN PO SCH ×3 (06:07→18:00)
[2022-06-12] MEDS: PANTOPRAZOLE 40MG DR TABLET PO SCH (06:08)
[2022-06-12 06:57] LABS: HEMATOCRIT. 30.9 % (42.0-52.0); HEMOGLOBIN. 9.7 g/dL (14.0-18.0); MEAN CORPUSCULAR VOLUME 79.8 fL (80.0-94.0); MEAN PLATELET VOLUME 9.3 fl (7.4-10.4); PLATELET 197 x1000/uL (130-400); RED BLOOD CELL COUNT 3.87 mill/uL (4.7-6.1); RED CELL DISTRIBUTION WIDTH 23.1 % (11.6-14.6)
[2022-06-12 07:32] LABS: CHLORIDE 95 mEq/L (98-107)
[2022-06-12 08:00] VITALS: BP 125/60
[2022-06-12 08:45] LABS: NUCLEATED RED BLOOD CELLS 1 /100 WBC; PLATELET ESTIMATE NORMAL
[2022-06-12] MEDS: ASPIRIN 81MG TABLET PO SCH (09:16)
[2022-06-12] MEDS: GABAPENTIN 300MG CAPSULE PO SCH ×3 (09:17→18:05)
[2022-06-12] MEDS: AMIODARONE HCL 200 MG TABLET PO SCH (09:19)
[2022-06-12] MEDS: FERROUS SULFATE 325MG TABLET PO SCH ×3 (09:20→18:06)
[2022-06-12] MEDS: ASCORBIC ACID 500 MG TABLET PO SCH (09:20)
[2022-06-12] MEDS: FUROSEMIDE 40MG TABLET PO SCH (09:20)
[2022-06-12] MEDS: PREDNISONE 10MG TABLET PO SCH (09:20)
[2022-06-12] MEDS: HYDROCODONE/ACETAMINOPHEN 7.5/325MG TABLET PO PRN ×3 (09:21→21:28)
[2022-06-12] MEDS ORDERED: LIDOCAINE HCL/PF 1% 10 MG/ML 5ML VIAL ONE (09:21)
[2022-06-12] MEDS: MIDODRINE HCL 5MG TABLET PO SCH ×3 (09:21→18:06)
[2022-06-12 20:00] VITALS: BP 130/73
[2022-06-12] MEDS: ATORVASTATIN CALCIUM 40MG TABLET PO SCH (21:21)
[2022-06-12] MEDS: QUETIAPINE FUMARATE 25MG TABLET PO SCH (21:23)
[2022-06-13] MEDS: VANCOMYCIN 1000MG/20ML ORAL SOLN PO SCH ×4 (00:06→18:00)
[2022-06-13] MEDS: HYDROCODONE/ACETAMINOPHEN 7.5/325MG TABLET PO PRN ×4 (00:16→18:19)
[2022-06-13] MEDS: IPRATROPIUM/ALBUTEROL 0.5-3(2.5)MG/3ML NEB HHN SCH ×4 (02:19→21:08)
[2022-06-13] MEDS: PANTOPRAZOLE 40MG DR TABLET PO SCH (06:36)
[2022-06-13 08:00] VITALS: BP 116/53
[2022-06-13] MEDS: FERROUS SULFATE 325MG TABLET PO SCH ×3 (10:04→18:16)
[2022-06-13] MEDS: PREDNISONE 10MG TABLET PO SCH (10:04)
[2022-06-13] MEDS: ASPIRIN 81MG TABLET PO SCH (10:04)
[2022-06-13] MEDS: GABAPENTIN 300MG CAPSULE PO SCH ×3 (10:05→18:16)
[2022-06-13] MEDS: ASCORBIC ACID 500 MG TABLET PO SCH (10:05)
[2022-06-13] MEDS: FUROSEMIDE 40MG TABLET PO SCH (10:05)
[2022-06-13] MEDS: AMIODARONE HCL 200 MG TABLET PO SCH (10:06)
[2022-06-13] MEDS: MIDODRINE HCL 5MG TABLET PO SCH ×3 (10:06→18:18)
[2022-06-13] MEDS ORDERED: BARIUM SULFATE 176 GM SUSP.RECON ONE (13:24)
[2022-06-13 20:24] VITALS: BP 140/60
[2022-06-13] MEDS: ATORVASTATIN CALCIUM 40MG TABLET PO SCH (20:58)
[2022-06-13] MEDS: QUETIAPINE FUMARATE 25MG TABLET PO SCH (21:00)
[2022-06-14] MEDS: IPRATROPIUM/ALBUTEROL 0.5-3(2.5)MG/3ML NEB HHN SCH ×3 (02:57→13:51)
[2022-06-14] MEDS: PANTOPRAZOLE 40MG DR TABLET PO SCH (06:01)
[2022-06-14] MEDS: VANCOMYCIN 1000MG/20ML ORAL SOLN PO SCH ×3 (06:02→11:29)
[2022-06-14 06:11] LABS: 25-HYDROXY VITAMIN D3 25 ng/mL (.)
[2022-06-14] MEDS: HYDROCODONE/ACETAMINOPHEN 7.5/325MG TABLET PO PRN (06:52)
[2022-06-14 06:58] LABS: HEMATOCRIT. 24.5 % (42.0-52.0); HEMOGLOBIN. 7.6 g/dL (14.0-18.0); MEAN CORPUSCULAR HEMOGLOBIN 24.9 pg (28.0-32.0); MEAN CORPUSCULAR VOLUME 80.7 fL (80.0-94.0); MEAN PLATELET VOLUME 8.5 fl (7.4-10.4); PLATELET 189 x1000/uL (130-400); RED BLOOD CELL COUNT 3.04 mill/uL (4.7-6.1)
[2022-06-14 08:00] VITALS: BP 123/58
[2022-06-14 08:04] LABS: CHLORIDE 95 mEq/L (98-107)
[2022-06-14] MEDS: AMIODARONE HCL 200 MG TABLET PO SCH (09:28)
[2022-06-14] MEDS: GABAPENTIN 300MG CAPSULE PO SCH ×2 (09:28→13:00)
[2022-06-14] MEDS: FUROSEMIDE 40MG TABLET PO SCH (09:28)
[2022-06-14] MEDS: MIDODRINE HCL 5MG TABLET PO SCH ×2 (09:28→12:28)
[2022-06-14] MEDS: FERROUS SULFATE 325MG TABLET PO SCH ×2 (09:28→13:00)
[2022-06-14] MEDS: ASCORBIC ACID 500 MG TABLET PO SCH (09:28)
[2022-06-14] MEDS: ASPIRIN 81MG TABLET PO SCH (09:28)
[2022-06-14] MEDS: PREDNISONE 10MG TABLET PO SCH (09:28)
[2022-06-14] MEDS ORDERED: ERGOCALCIFEROL 50000UNITS CAPSULE PO SCH (10:30)
[2022-06-14 13:44] LABS: NUCLEATED RED BLOOD CELLS 2 /100 WBC
[2022-06-14 13:46] LABS: PLATELET ESTIMATE NORMAL
[2022-06-14] MEDS ORDERED: LIDOCAINE HCL 1% 10 MG/ML 10ML VIAL ONE (14:42)
[2022-06-14 14:50] LABS: BG BASE EXCESS 11.7 mmol/L (-2.0-2.0); BG DEOXYHEMOGLOBIN 8.4 % (0.0-5.0); BG HCO3 ACT 41.4 mmol/L (22.0-26.0); BG METHEMOGLOBIN 0.1 % (0.0-1.5); BG OXYGEN SATURATION 91.4 % (92.0-98.5); BG OXYHEMOGLOBIN 89.5 % (94.0-97.0); BG PCO2 96.8 mmHg (35.0-45.0); BG PH 7.249 (7.350-7.450); BG PO2 72.6 mmHg (75.0-100.0); BG SAMPLE SITE LEFT RADIAL; BG TOTAL HEMOGLOBIN 9.3 g/dL (12.0-18.0); BG VENT MODE NASAL CANNULA
[2022-06-14] MEDS ORDERED: BLOOD SUGAR DIAGNOSTIC STRIP TEST SCH (17:00)
== END 2022-06-14 15:01 | disposition short-term general hospital (02) | DRG 70 ==
PROVIDERS: ADMIT Physical Medicine & Rehabilitation Spinal Cord Injury Medicine; ATTEND Internal Medicine
PROC: 0HBMXZZ Excision of Right Foot Skin, External Approach (ICD-10-PCS; principal; 2022-06-11)
DX: G93.41 Metabolic encephalopathy (principal); A41.4 Sepsis due to anaerobes; I21.4 Non-ST elevation (NSTEMI) myocardial infarction; R65.20 Severe sepsis without septic shock; J96.00 Acute respiratory failure, unspecified whether with hypoxia or hypercapnia; A04.72 Enterocolitis due to Clostridium difficile, not specified as recurrent; I42.9 Cardiomyopathy, unspecified; N17.9 Acute kidney failure, unspecified; M62.82 Rhabdomyolysis; L97.419 Non-pressure chronic ulcer of right heel and midfoot with unspecified severity; I50.30 Unspecified diastolic (congestive) heart failure; K57.92 Diverticulitis of intestine, part unspecified, without perforation or abscess without bleeding; Z68.35 Body mass index [BMI] 35.0-35.9, adult; G47.00 Insomnia, unspecified; G89.29 Other chronic pain; G57.90 Unspecified mononeuropathy of unspecified lower limb; E11.42 Type 2 diabetes mellitus with diabetic polyneuropathy; E11.621 Type 2 diabetes mellitus with foot ulcer; D64.9 Anemia, unspecified; E11.41 Type 2 diabetes mellitus with diabetic mononeuropathy; E55.9 Vitamin D deficiency, unspecified; E61.1 Iron deficiency; E86.1 Hypovolemia; E87.6 Hypokalemia; F39 Unspecified mood [affective] disorder; F40.240 Claustrophobia; F41.1 Generalized anxiety disorder; I25.10 Atherosclerotic heart disease of native coronary artery without angina pectoris; I27.20 Pulmonary hypertension, unspecified; I45.10 Unspecified right bundle-branch block; Z53.9 Procedure and treatment not carried out, unspecified reason; M51.16 Intervertebral disc disorders with radiculopathy, lumbar region; M47.26 Other spondylosis with radiculopathy, lumbar region; M06.9 Rheumatoid arthritis, unspecified; I65.23 Occlusion and stenosis of bilateral carotid arteries; I89.0 Lymphedema, not elsewhere classified; J10.1 Influenza due to other identified influenza virus with other respiratory manifestations; Z20.822 Contact with and (suspected) exposure to COVID-19; K80.50 Calculus of bile duct without cholangitis or cholecystitis without obstruction; R26.9 Unspecified abnormalities of gait and mobility; R41.3 Other amnesia; R53.81 Other malaise; I48.0 Paroxysmal atrial fibrillation; I95.9 Hypotension, unspecified; E66.9 Obesity, unspecified; Z91.81 History of falling; I25.2 Old myocardial infarction; Z90.49 Acquired absence of other specified parts of digestive tract; Z87.891 Personal history of nicotine dependence; Z87.11 Personal history of peptic ulcer disease; Z79.899 Other long term (current) drug therapy; Z79.82 Long term (current) use of aspirin
CPT/HCPCS: 36415; 36573; 36600; 71045; 74230; 80048; 80053; 80076; 82140; 82306; 82375; 82607; 82728; 82746; 82805; 82962; 83036; 83540; 83550; 83735; 84134; 84153; 84443; 85025; 92523; 92610; 92611; 93005; 93970; 94640; 94660; 97110; 97162; 97166; 97530; 97535; J3370; J3490; J7512; Q0162; U0003; U0005; G0103

== ENCOUNTER 2022-06-14 15:00 | Inpatient (IN) | payer MEDICARE, BC ==
[~2022-06-14] VITALS: Ht 170.2 cm; Wt 101.2 kg
[2022-06-14] VITALS (29 sets, daily range): BP systolic 51–113; BP diastolic 31–82
[2022-06-14 16:25] LABS: BG BASE EXCESS 8.3 mmol/L (-2.0-2.0); BG CARBOXYHEMOGLOBIN 2.2 % (0.5-1.5); BG DEOXYHEMOGLOBIN 3.5 % (0.0-5.0); BG FRACTION INSPIRED OXYGEN 50; BG HCO3 ACT 36.9 mmol/L (22.0-26.0); BG METHEMOGLOBIN 0.3 % (0.0-1.5); BG OXYGEN SATURATION 96.4 % (92.0-98.5); BG PCO2 82.1 mmHg (35.0-45.0); BG PH 7.271 (7.350-7.450); BG PO2 95.6 mmHg (75.0-100.0); BG TOTAL HEMOGLOBIN 8.8 g/dL (12.0-18.0); BG VENT MODE MASK - BIPAP
[2022-06-14] MEDS ORDERED: ONDANSETRON HCL 4MG/2ML INJ IV PRN (17:30)
[2022-06-14] MEDS ORDERED: HYDROCODONE/ACETAMINOPHEN 7.5/325MG TABLET PO PRN (17:30)
[2022-06-14] MEDS ORDERED: ACETAMINOPHEN 325MG TABLET PO PRN (17:30)
[2022-06-14] MEDS: IPRATROPIUM/ALBUTEROL 0.5-3(2.5)MG/3ML NEB HHN SCH (20:47)
[2022-06-14 20:53] LABS: HEMATOCRIT 24.7 % (42.0-52.0); HEMOGLOBIN 7.4 g/dL (14.0-18.0)
[2022-06-14] MEDS: BLOOD SUGAR DIAGNOSTIC STRIP TEST SCH (21:00)
[2022-06-14] MEDS: ATORVASTATIN CALCIUM 40MG TABLET PO SCH (21:00)
[2022-06-14] MEDS: QUETIAPINE FUMARATE 25MG TABLET PO SCH (21:00)
[2022-06-14 21:59] LABS: BG CARBOXYHEMOGLOBIN 2.2 % (0.5-1.5); BG DEOXYHEMOGLOBIN 1.3 % (0.0-5.0); BG FRACTION INSPIRED OXYGEN 50; BG HCO3 ACT 41.3 mmol/L (22.0-26.0); BG METHEMOGLOBIN 0.3 % (0.0-1.5); BG OXYGEN SATURATION 98.7 % (92.0-98.5); BG OXYHEMOGLOBIN 96.2 % (94.0-97.0); BG PCO2 82.4 mmHg (35.0-45.0); BG PH 7.318 (7.350-7.450); BG PO2 137.9 mmHg (75.0-100.0); BG SAMPLE SITE LEFT RADIAL; BG TOTAL HEMOGLOBIN 12.2 g/dL (12.0-18.0); BG VENT MODE MASK - BIPAP
[2022-06-14] MEDS: HYDROCORTISONE SOD SUCCINATE 100 MG/2 ML VIAL IV SCH (22:00)
[2022-06-14] MEDS: GABAPENTIN 300MG CAPSULE PO SCH (22:00)
[2022-06-15] VITALS (70 sets, daily range): BP systolic 69–142; BP diastolic 42–110
[2022-06-15] MEDS: VANCOMYCIN 1000MG/20ML ORAL SOLN PO SCH ×2 (00:43→06:41)
[2022-06-15] MEDS: IPRATROPIUM/ALBUTEROL 0.5-3(2.5)MG/3ML NEB HHN SCH ×4 (02:36→20:21)
[2022-06-15 05:27] LABS: CHLORIDE 96 mEq/L (98-107)
[2022-06-15] MEDS ORDERED: PANTOPRAZOLE 40MG DR TABLET PO SCH (06:30)
[2022-06-15] MEDS: BLOOD SUGAR DIAGNOSTIC STRIP TEST SCH ×4 (06:30→21:10)
[2022-06-15] MEDS: GABAPENTIN 300MG CAPSULE PO SCH ×3 (06:41→21:10)
[2022-06-15] MEDS: HYDROCORTISONE SOD SUCCINATE 100 MG/2 ML VIAL IV SCH ×3 (06:41→21:10)
[2022-06-15] MEDS: FERROUS SULFATE 325MG TABLET PO SCH ×3 (06:42→18:18)
[2022-06-15 08:39] LABS: HEMATOCRIT. 23.3 % (42.0-52.0); HEMOGLOBIN. 7.1 g/dL (14.0-18.0); MEAN CORPUSCULAR HEMOGLOBIN 24.9 pg (28.0-32.0); MEAN CORPUSCULAR VOLUME 81.6 fL (80.0-94.0); MEAN PLATELET VOLUME 9.1 fl (7.4-10.4); PLATELET 198 x1000/uL (130-400); RED BLOOD CELL COUNT 2.86 mill/uL (4.7-6.1); RED CELL DISTRIBUTION WIDTH 22.9 % (11.6-14.6)
[2022-06-15] MEDS ORDERED: ASPIRIN 81MG TABLET PO SCH (09:00)
[2022-06-15] MEDS ORDERED: PREDNISONE 10MG TABLET PO SCH (09:00)
[2022-06-15] MEDS: LACTOBACILLUS GG CAPSULE PO SCH (09:00)
[2022-06-15] MEDS ORDERED: NALOXONE HCL 0.4MG/ML VIAL IV PRN (09:00)
[2022-06-15 09:11] LABS: BG BASE EXCESS 15.9 mmol/L (-2.0-2.0); BG DEOXYHEMOGLOBIN 1.4 % (0.0-5.0); BG FRACTION INSPIRED OXYGEN 40; BG HCO3 ACT 42.5 mmol/L (22.0-26.0); BG METHEMOGLOBIN 1.2 % (0.0-1.5); BG OXYGEN SATURATION 98.6 % (92.0-98.5); BG OXYHEMOGLOBIN 96.4 % (94.0-97.0); BG PCO2 68.8 mmHg (35.0-45.0); BG PH 7.409 (7.350-7.450); BG PO2 165.2 mmHg (75.0-100.0); BG SAMPLE SITE LEFT RADIAL; BG TOTAL HEMOGLOBIN 8.2 g/dL (12.0-18.0); BG VENT MODE NASAL CANNULA
[2022-06-15] MEDS: ASCORBIC ACID 500 MG TABLET PO SCH (10:17)
[2022-06-15] MEDS: MIDODRINE HCL 5MG TABLET PO SCH ×3 (10:17→18:18)
[2022-06-15] MEDS: AMIODARONE HCL 200 MG TABLET PO SCH (10:17)
[2022-06-15] MEDS: FUROSEMIDE 40MG/4ML VIAL IVP SCH (10:25)
[2022-06-15] MEDS: FAMOTIDINE 20MG/2ML VIAL IV SCH (10:25)
[2022-06-15 10:38] LABS: NUCLEATED RED BLOOD CELLS 1 /100 WBC; PLATELET ESTIMATE NORMAL
[2022-06-15] MEDS ORDERED: HYDROCODONE/ACETAMINOPHEN 7.5/325MG TABLET PO PRN (11:15)
[2022-06-15] MEDS: HYDROCODONE/ACETAMINOPHEN 5/325MG TABLET PO PRN ×2 (11:20→19:32)
[2022-06-15] MEDS: QUETIAPINE FUMARATE 25MG TABLET PO SCH (21:00)
[2022-06-15] MEDS: ATORVASTATIN CALCIUM 40MG TABLET PO SCH (21:10)
[2022-06-16] VITALS (60 sets, daily range): BP systolic 92–137; BP diastolic 48–82
[2022-06-16] MEDS: IPRATROPIUM/ALBUTEROL 0.5-3(2.5)MG/3ML NEB HHN SCH ×4 (02:16→22:02)
[2022-06-16] MEDS: HYDROCORTISONE SOD SUCCINATE 100 MG/2 ML VIAL IV SCH ×3 (05:38→22:00)
[2022-06-16] MEDS: BLOOD SUGAR DIAGNOSTIC STRIP TEST SCH ×4 (05:38→21:55)
[2022-06-16] MEDS: GABAPENTIN 300MG CAPSULE PO SCH ×3 (05:38→22:00)
[2022-06-16 05:59] LABS: HEMATOCRIT. 21.3 % (42.0-52.0); MEAN CORPUSCULAR HEMOGLOBIN 25.4 pg (28.0-32.0); MEAN CORPUSCULAR VOLUME 80.3 fL (80.0-94.0); MEAN PLATELET VOLUME 9.2 fl (7.4-10.4); PLATELET 270 x1000/uL (130-400); RED BLOOD CELL COUNT 2.65 mill/uL (4.7-6.1)
[2022-06-16 06:18] LABS: HEMOGLOBIN. 6.7 g/dL (14.0-18.0)
[2022-06-16 06:29] LABS: CHLORIDE 95 mEq/L (98-107)
[2022-06-16] MEDS: FUROSEMIDE 40MG/4ML VIAL IVP SCH (09:18)
[2022-06-16] MEDS: FAMOTIDINE 20MG/2ML VIAL IV SCH (09:18)
[2022-06-16] MEDS: LACTOBACILLUS GG CAPSULE PO SCH (09:19)
[2022-06-16] MEDS: ASCORBIC ACID 500 MG TABLET PO SCH (09:19)
[2022-06-16] MEDS: AMIODARONE HCL 200 MG TABLET PO SCH (09:19)
[2022-06-16] MEDS: HYDROCODONE/ACETAMINOPHEN 5/325MG TABLET PO PRN ×2 (09:19→23:53)
[2022-06-16] MEDS: FERROUS SULFATE 325MG TABLET PO SCH ×3 (09:20→18:25)
[2022-06-16] MEDS: MIDODRINE HCL 5MG TABLET PO SCH ×3 (09:20→18:25)
[2022-06-16 11:54] LABS: PLATELET ESTIMATE NORMAL
[2022-06-16] MEDS ORDERED: LEFL20TA17 PO (18:03)
[2022-06-16] MEDS ORDERED: POTA-79 PO (18:03)
[2022-06-16] MEDS ORDERED: MESA1.2T3 PO (18:03)
[2022-06-16] MEDS ORDERED: HYDR-4001 PO (18:03)
[2022-06-16] MEDS ORDERED: METO25TA6 PO (18:03)
[2022-06-16] MEDS ORDERED: OMEP20CA14 PO (18:03)
[2022-06-16] MEDS ORDERED: FURO40TA5 PO (18:03)
[2022-06-16] MEDS ORDERED: ATOR10TA69 PO (18:03)
[2022-06-16] MEDS ORDERED: GABA-532 PO (18:03)
[2022-06-16] MEDS ORDERED: SUCR1TAB PO (18:03)
[2022-06-16] MEDS ORDERED: PRED5TAB PO (18:03)
[2022-06-16] MEDS ORDERED: TAMS-11 PO (18:03)
[2022-06-16 19:33] LABS: HEMATOCRIT 23.1 % (42.0-52.0); HEMOGLOBIN 7.2 g/dL (14.0-18.0); MEAN CORPUSCULAR HEMOGLOBIN 25.3 pg (28.0-32.0); MEAN CORPUSCULAR VOLUME 80.6 fL (80.0-94.0); PLATELET 319 x1000/uL (130-400); RED BLOOD CELL COUNT 2.86 mill/uL (4.7-6.1); RED CELL DISTRIBUTION WIDTH 21.9 % (11.6-14.6)
[2022-06-16] MEDS: QUETIAPINE FUMARATE 25MG TABLET PO SCH (21:00)
[2022-06-16] MEDS: ATORVASTATIN CALCIUM 40MG TABLET PO SCH (21:53)
[2022-06-16] MEDS: MESALAMINE 1.2 GM PO SCH (21:54)
[2022-06-17] VITALS (27 sets, daily range): BP systolic 95–126; BP diastolic 50–82
[2022-06-17] MEDS: HYDROCODONE/ACETAMINOPHEN 5/325MG TABLET PO PRN ×2 (04:25→12:56)
[2022-06-17] MEDS: HYDROCORTISONE SOD SUCCINATE 100 MG/2 ML VIAL IV SCH ×3 (05:34→21:15)
[2022-06-17] MEDS: BLOOD SUGAR DIAGNOSTIC STRIP TEST SCH ×4 (05:35→21:07)
[2022-06-17] MEDS: GABAPENTIN 300MG CAPSULE PO SCH ×3 (05:35→21:14)
[2022-06-17 08:21] LABS: CHLORIDE 97 mEq/L (98-107)
[2022-06-17 08:28] LABS: HEMATOCRIT. 21.6 % (42.0-52.0); MEAN CORPUSCULAR HEMOGLOBIN 25.2 pg (28.0-32.0); MEAN PLATELET VOLUME 8.8 fl (7.4-10.4); PLATELET 330 x1000/uL (130-400); RED BLOOD CELL COUNT 2.66 mill/uL (4.7-6.1); RED CELL DISTRIBUTION WIDTH 21.8 % (11.6-14.6)
[2022-06-17] MEDS: MESALAMINE 1.2 GM PO SCH ×2 (08:39→21:14)
[2022-06-17] MEDS: FAMOTIDINE 20MG/2ML VIAL IV SCH (08:40)
[2022-06-17] MEDS: AMIODARONE HCL 200 MG TABLET PO SCH (08:40)
[2022-06-17] MEDS: MIDODRINE HCL 5MG TABLET PO SCH ×3 (08:40→18:26)
[2022-06-17] MEDS: FUROSEMIDE 40MG/4ML VIAL IVP SCH (08:40)
[2022-06-17] MEDS: ASCORBIC ACID 500 MG TABLET PO SCH (08:41)
[2022-06-17] MEDS: FERROUS SULFATE 325MG TABLET PO SCH ×3 (08:41→18:26)
[2022-06-17] MEDS: LACTOBACILLUS GG CAPSULE PO SCH ×2 (08:43→16:49)
[2022-06-17 08:44] LABS: HEMOGLOBIN. 6.7 g/dL (14.0-18.0)
[2022-06-17] MEDS: IPRATROPIUM/ALBUTEROL 0.5-3(2.5)MG/3ML NEB HHN SCH ×6 (09:19→20:20)
[2022-06-17 11:29] LABS: PLATELET ESTIMATE NORMAL
[2022-06-17 20:41] LABS: HEMATOCRIT. 27.9 % (42.0-52.0); HEMOGLOBIN. 8.9 g/dL (14.0-18.0); MEAN CORPUSCULAR HEMOGLOBIN 25.8 pg (28.0-32.0); MEAN CORPUSCULAR VOLUME 80.9 fL (80.0-94.0); MEAN PLATELET VOLUME 8.4 fl (7.4-10.4); PLATELET 343 x1000/uL (130-400); RED BLOOD CELL COUNT 3.45 mill/uL (4.7-6.1); RED CELL DISTRIBUTION WIDTH 20.7 % (11.6-14.6)
[2022-06-17] MEDS: QUETIAPINE FUMARATE 25MG TABLET PO SCH (21:14)
[2022-06-17] MEDS: ATORVASTATIN CALCIUM 40MG TABLET PO SCH (21:15)
[2022-06-17 21:35] LABS: PLATELET ESTIMATE NORMAL
[2022-06-18] VITALS (13 sets, daily range): BP systolic 97–131; BP diastolic 51–70
[2022-06-18] MEDS: IPRATROPIUM/ALBUTEROL 0.5-3(2.5)MG/3ML NEB HHN SCH ×4 (01:58→20:21)
[2022-06-18] MEDS: HYDROCORTISONE SOD SUCCINATE 100 MG/2 ML VIAL IV SCH ×2 (05:43→17:50)
[2022-06-18] MEDS: GABAPENTIN 300MG CAPSULE PO SCH ×3 (05:44→21:00)
[2022-06-18] MEDS: BLOOD SUGAR DIAGNOSTIC STRIP TEST SCH ×4 (07:30→21:00)
[2022-06-18 07:42] LABS: HEMATOCRIT. 30.2 % (42.0-52.0); MEAN CORPUSCULAR HEMOGLOBIN 25.5 pg (28.0-32.0); MEAN CORPUSCULAR VOLUME 85.6 fL (80.0-94.0); MEAN PLATELET VOLUME 8.5 fl (7.4-10.4); PLATELET 383 x1000/uL (130-400); RED BLOOD CELL COUNT 3.52 mill/uL (4.7-6.1); RED CELL DISTRIBUTION WIDTH 21.3 % (11.6-14.6)
[2022-06-18 08:07] LABS: CHLORIDE 98 mEq/L (98-107)
[2022-06-18 08:14] LABS: PHOSPHORUS 4.2 mg/dL (2.5-4.9)
[2022-06-18] MEDS: FUROSEMIDE 40MG/4ML VIAL IVP SCH (09:31)
[2022-06-18] MEDS: FAMOTIDINE 20MG TABLET PO SCH (09:32)
[2022-06-18] MEDS: FERROUS SULFATE 325MG TABLET PO SCH ×3 (09:33→17:50)
[2022-06-18] MEDS: AMIODARONE HCL 200 MG TABLET PO SCH (09:33)
[2022-06-18] MEDS: MIDODRINE HCL 5MG TABLET PO SCH ×3 (09:33→17:52)
[2022-06-18] MEDS: ASCORBIC ACID 500 MG TABLET PO SCH (09:33)
[2022-06-18] MEDS: MENTHOL/LANOLIN/CALAMINE/ZN OX OINT 71GM TOP SCH ×2 (09:34→20:54)
[2022-06-18] MEDS: MESALAMINE 1.2 GM PO SCH ×2 (09:35→20:54)
[2022-06-18] MEDS: HYDROCODONE/ACETAMINOPHEN 5/325MG TABLET PO PRN ×2 (12:57→20:56)
[2022-06-18 17:04] LABS: PLATELET ESTIMATE NORMAL
[2022-06-18] MEDS: ATORVASTATIN CALCIUM 40MG TABLET PO SCH (20:55)
[2022-06-19] VITALS (11 sets, daily range): BP systolic 105–136; BP diastolic 55–69
[2022-06-19] MEDS: IPRATROPIUM/ALBUTEROL 0.5-3(2.5)MG/3ML NEB HHN SCH ×4 (02:10→20:20)
[2022-06-19] MEDS: GABAPENTIN 300MG CAPSULE PO SCH ×3 (06:00→21:00)
[2022-06-19 06:52] LABS: HEMOGLOBIN. 8.1 g/dL (14.0-18.0); MEAN CORPUSCULAR HEMOGLOBIN 27.3 pg (28.0-32.0); MEAN CORPUSCULAR VOLUME 81.1 fL (80.0-94.0); MEAN PLATELET VOLUME 8.2 fl (7.4-10.4); PLATELET 365 x1000/uL (130-400); RED BLOOD CELL COUNT 2.96 mill/uL (4.7-6.1); RED CELL DISTRIBUTION WIDTH 21.3 % (11.6-14.6)
[2022-06-19 07:25] LABS: CHLORIDE 96 mEq/L (98-107)
[2022-06-19 07:27] LABS: INR 1.3; PROTHROMBIN TIME 13.4 sec (9.6-11.0)
[2022-06-19] MEDS: FERROUS SULFATE 325MG TABLET PO SCH ×3 (08:00→17:33)
[2022-06-19] MEDS: BLOOD SUGAR DIAGNOSTIC STRIP TEST SCH ×4 (08:28→20:32)
[2022-06-19] MEDS: ASCORBIC ACID 500 MG TABLET PO SCH (09:00)
[2022-06-19] MEDS: MENTHOL/LANOLIN/CALAMINE/ZN OX OINT 71GM TOP SCH ×2 (09:00→21:00)
[2022-06-19] MEDS: MESALAMINE 1.2 GM PO SCH ×2 (09:00→21:00)
[2022-06-19] MEDS: AMIODARONE HCL 200 MG TABLET PO SCH (09:00)
[2022-06-19] MEDS: FAMOTIDINE 20MG TABLET PO SCH (09:00)
[2022-06-19] MEDS: MIDODRINE HCL 5MG TABLET PO SCH ×3 (09:00→17:33)
[2022-06-19] MEDS ORDERED: KCL 20MEQ/100ML PREMIX 100 ML IV NR (10:00)
[2022-06-19] MEDS: FUROSEMIDE 40MG/4ML VIAL IVP SCH (10:04)
[2022-06-19] MEDS: HYDROCORTISONE SOD SUCCINATE 100 MG/2 ML VIAL IV SCH ×2 (10:04→17:33)
[2022-06-19] MEDS ORDERED: DEXAMETHASONE 4MG/ML 1ML VIAL ONE (11:56)
[2022-06-19] MEDS ORDERED: ONDANSETRON HCL 4MG/2ML INJ ONE (11:56)
[2022-06-19] MEDS ORDERED: PROPOFOL 200MG/20ML VIAL IV ONE (11:56)
[2022-06-19] MEDS: LACTOBACILLUS GG CAPSULE PO SCH (11:59)
[2022-06-19 13:01] LABS: PLATELET ESTIMATE NORMAL
[2022-06-19] MEDS: PANTOPRAZOLE SODIUM 40 MG/VIAL IV SCH ×2 (14:45→20:57)
[2022-06-19] MEDS: HYDROCODONE/ACETAMINOPHEN 5/325MG TABLET PO PRN ×2 (14:55→20:58)
[2022-06-19] MEDS: SUCRALFATE 1G TABLET PO SCH ×2 (17:33→20:58)
[2022-06-19] MEDS: ATORVASTATIN CALCIUM 40MG TABLET PO SCH (20:57)
[2022-06-20] VITALS (17 sets, daily range): BP systolic 104–145; BP diastolic 57–65
[2022-06-20] MEDS: IPRATROPIUM/ALBUTEROL 0.5-3(2.5)MG/3ML NEB HHN SCH ×3 (02:15→21:39)
[2022-06-20] MEDS: GABAPENTIN 300MG CAPSULE PO SCH ×3 (05:23→20:46)
[2022-06-20] MEDS: PANTOPRAZOLE SODIUM 40 MG/VIAL IV SCH ×2 (05:26→17:42)
[2022-06-20 07:17] LABS: HEMATOCRIT. 21.2 % (42.0-52.0); MEAN CORPUSCULAR HEMOGLOBIN 25.9 pg (28.0-32.0); MEAN CORPUSCULAR VOLUME 83.6 fL (80.0-94.0); MEAN PLATELET VOLUME 8.3 fl (7.4-10.4); PLATELET 323 x1000/uL (130-400); RED BLOOD CELL COUNT 2.53 mill/uL (4.7-6.1); RED CELL DISTRIBUTION WIDTH 21.2 % (11.6-14.6)
[2022-06-20] MEDS: BLOOD SUGAR DIAGNOSTIC STRIP TEST SCH ×4 (07:30→20:46)
[2022-06-20 07:59] LABS: CHLORIDE 95 mEq/L (98-107)
[2022-06-20 08:10] LABS: HEMOGLOBIN. 6.6 g/dL (14.0-18.0)
[2022-06-20] MEDS: HYDROCORTISONE SOD SUCCINATE 100 MG/2 ML VIAL IV SCH ×2 (08:42→17:42)
[2022-06-20] MEDS: FUROSEMIDE 40MG/4ML VIAL IVP SCH (08:43)
[2022-06-20] MEDS: AMIODARONE HCL 200 MG TABLET PO SCH (08:43)
[2022-06-20] MEDS: FERROUS SULFATE 325MG TABLET PO SCH ×3 (08:43→17:42)
[2022-06-20] MEDS: MIDODRINE HCL 5MG TABLET PO SCH ×3 (08:43→17:42)
[2022-06-20] MEDS: ASCORBIC ACID 500 MG TABLET PO SCH (08:43)
[2022-06-20] MEDS: LACTOBACILLUS GG CAPSULE PO SCH (08:43)
[2022-06-20] MEDS: MESALAMINE 1.2 GM PO SCH ×2 (08:44→20:47)
[2022-06-20] MEDS: SUCRALFATE 1G TABLET PO SCH ×4 (08:44→20:46)
[2022-06-20] MEDS: MENTHOL/LANOLIN/CALAMINE/ZN OX OINT 71GM TOP SCH ×2 (08:44→20:46)
[2022-06-20] MEDS: HYDROCODONE/ACETAMINOPHEN 5/325MG TABLET PO PRN ×2 (09:39→16:59)
[2022-06-20] MEDS ORDERED: NALOXONE HCL 0.4MG/ML VIAL IV PRN (09:45)
[2022-06-20 10:16] LABS: PLATELET ESTIMATE NORMAL
[2022-06-20] MEDS: ATORVASTATIN CALCIUM 40MG TABLET PO SCH (20:46)
[2022-06-21] VITALS (12 sets, daily range): BP systolic 103–127; BP diastolic 43–65
[2022-06-21] MEDS: IPRATROPIUM/ALBUTEROL 0.5-3(2.5)MG/3ML NEB HHN SCH ×3 (00:38→23:08)
[2022-06-21] MEDS: FUROSEMIDE 40MG/4ML VIAL IVP SCH ×3 (00:57→18:07)
[2022-06-21] MEDS: PANTOPRAZOLE SODIUM 40 MG/VIAL IV SCH ×2 (05:40→18:07)
[2022-06-21] MEDS: GABAPENTIN 300MG CAPSULE PO SCH ×2 (05:42→13:53)
[2022-06-21] MEDS: BLOOD SUGAR DIAGNOSTIC STRIP TEST SCH ×4 (08:12→20:05)
[2022-06-21] MEDS: MIDODRINE HCL 5MG TABLET PO SCH ×3 (09:00→18:08)
[2022-06-21] MEDS ORDERED: ERGOCALCIFEROL 50000UNITS CAPSULE PO SCH (09:00)
[2022-06-21] MEDS: AMIODARONE HCL 200 MG TABLET PO SCH (10:04)
[2022-06-21] MEDS: FERROUS SULFATE 325MG TABLET PO SCH ×3 (10:04→18:07)
[2022-06-21] MEDS: SUCRALFATE 1G TABLET PO SCH ×4 (10:05→20:04)
[2022-06-21] MEDS: ASCORBIC ACID 500 MG TABLET PO SCH (10:05)
[2022-06-21] MEDS: HYDROCODONE/ACETAMINOPHEN 5/325MG TABLET PO PRN ×2 (10:05→20:04)
[2022-06-21] MEDS: HYDROCORTISONE SOD SUCCINATE 100 MG/2 ML VIAL IV SCH ×2 (10:06→18:06)
[2022-06-21] MEDS: LACTOBACILLUS GG CAPSULE PO SCH (10:06)
[2022-06-21] MEDS: MESALAMINE 1.2 GM PO SCH ×2 (10:08→20:05)
[2022-06-21] MEDS: MENTHOL/LANOLIN/CALAMINE/ZN OX OINT 71GM TOP SCH ×2 (10:08→20:04)
[2022-06-21 10:47] LABS: HEMATOCRIT. 27.8 % (42.0-52.0); HEMOGLOBIN. 8.8 g/dL (14.0-18.0); MEAN CORPUSCULAR HEMOGLOBIN 26.5 pg (28.0-32.0); MEAN CORPUSCULAR VOLUME 83.4 fL (80.0-94.0); MEAN PLATELET VOLUME 8.1 fl (7.4-10.4); PLATELET 375 x1000/uL (130-400); RED BLOOD CELL COUNT 3.33 mill/uL (4.7-6.1); RED CELL DISTRIBUTION WIDTH 20.2 % (11.6-14.6)
[2022-06-21 10:54] LABS: INR 1.1; PROTHROMBIN TIME 11.7 sec (9.6-11.0)
[2022-06-21 10:55] LABS: CHLORIDE 98 mEq/L (98-107)
[2022-06-21 11:50] LABS: PLATELET ESTIMATE NORMAL
[2022-06-21] MEDS: ATORVASTATIN CALCIUM 40MG TABLET PO SCH (20:04)
== END 2022-06-21 23:23 | DRG 871 ==
LOC: MICUNO 15:00 → MICUSO 06-15 18:18 → 5EST 06-16 20:10
PROVIDERS: ADMIT Internal Medicine; ATTEND Internal Medicine
PROC: 5A09357 Assistance with Respiratory Ventilation, Less than 24 Consecutive Hours, Continuous Positive Airway Pressure (ICD-10-PCS; 2022-06-14)
PROC: 30233N1 Transfusion of Nonautologous Red Blood Cells into Peripheral Vein, Percutaneous Approach (ICD-10-PCS; 2022-06-16)
PROC: 0DB78ZX Excision of Stomach, Pylorus, Via Natural or Artificial Opening Endoscopic, Diagnostic (ICD-10-PCS; principal; 2022-06-19)
DX: A41.4 Sepsis due to anaerobes (principal); E43 Unspecified severe protein-calorie malnutrition; J96.02 Acute respiratory failure with hypercapnia; I50.43 Acute on chronic combined systolic (congestive) and diastolic (congestive) heart failure; I21.4 Non-ST elevation (NSTEMI) myocardial infarction; G93.41 Metabolic encephalopathy; A04.72 Enterocolitis due to Clostridium difficile, not specified as recurrent; E72.20 Disorder of urea cycle metabolism, unspecified; E87.4 Mixed disorder of acid-base balance; I42.9 Cardiomyopathy, unspecified; K57.92 Diverticulitis of intestine, part unspecified, without perforation or abscess without bleeding; L97.419 Non-pressure chronic ulcer of right heel and midfoot with unspecified severity; M62.82 Rhabdomyolysis; N17.9 Acute kidney failure, unspecified; R65.20 Severe sepsis without septic shock; D64.9 Anemia, unspecified; E11.41 Type 2 diabetes mellitus with diabetic mononeuropathy; E11.621 Type 2 diabetes mellitus with foot ulcer; Z20.822 Contact with and (suspected) exposure to COVID-19; E55.9 Vitamin D deficiency, unspecified; E61.1 Iron deficiency; E66.9 Obesity, unspecified; E86.1 Hypovolemia; E87.6 Hypokalemia; G57.90 Unspecified mononeuropathy of unspecified lower limb; G89.29 Other chronic pain; I25.10 Atherosclerotic heart disease of native coronary artery without angina pectoris; I48.0 Paroxysmal atrial fibrillation; I65.23 Occlusion and stenosis of bilateral carotid arteries; J10.1 Influenza due to other identified influenza virus with other respiratory manifestations; J44.9 Chronic obstructive pulmonary disease, unspecified; K80.50 Calculus of bile duct without cholangitis or cholecystitis without obstruction; M06.9 Rheumatoid arthritis, unspecified; M47.26 Other spondylosis with radiculopathy, lumbar region; M51.16 Intervertebral disc disorders with radiculopathy, lumbar region; K25.9 Gastric ulcer, unspecified as acute or chronic, without hemorrhage or perforation; K29.70 Gastritis, unspecified, without bleeding; R26.9 Unspecified abnormalities of gait and mobility; E11.51 Type 2 diabetes mellitus with diabetic peripheral angiopathy without gangrene; I25.2 Old myocardial infarction; Z87.11 Personal history of peptic ulcer disease; Z87.891 Personal history of nicotine dependence; Z90.49 Acquired absence of other specified parts of digestive tract; Z68.34 Body mass index [BMI] 34.0-34.9, adult
CPT/HCPCS: 36415; 36600; 71045; 76604; 76700; 80048; 80076; 82140; 82270; 82375; 82805; 82962; 83735; 84100; 84443; 85014; 85018; 85025; 85027; 86850; 86900; 86920; 87426; 88305; 92610; 94640; 94660; 97110; 97162; 97165; 97530; C9113; J1100; J1720; J1940; J2405; J2704; J3370; J3480; J3490; P9016; A4315; A5200

== ENCOUNTER 2022-07-02 18:54 | Inpatient (IN) | payer MEDICARE, BC ==
[~2022-07-02] VITALS: Ht 170.2 cm; Wt 101.2 kg
[~2022-07-02 18:54] MED LIST: ATOR10TA69 PO; FURO40TA5 PO; GABA-532 PO; HYDR-4001 PO; LEFL20TA17 PO; MESA1.2T3 PO; METO25TA6 PO; OMEP20CA14 PO; POTA-79 PO; PRED5TAB PO; SUCR1TAB PO; TAMS-11 PO
[2022-07-02 23:35] VITALS: BP 119/64
[2022-07-03] VITALS (13 sets, daily range): BP systolic 87–135; BP diastolic 54–81
[2022-07-03] MEDS ORDERED: MISCELLANEOUS MEDICATION 1 EA PO PRN (00:30)
[2022-07-03] MEDS ORDERED: GUAIFENESIN 200MG/10ML SUGAR FREE UDC PO PRN (00:30)
[2022-07-03] MEDS ORDERED: BENZONATATE 100MG CAPSULE PO PRN (00:30)
[2022-07-03] MEDS: ACETAZOLAMIDE 250MG TABLET PO SCH ×3 (00:30→18:10)
[2022-07-03] MEDS ORDERED: MENTHOL/LANOLIN/CALAMINE/ZN OX OINT 71GM TOP PRN (00:30)
[2022-07-03] MEDS ORDERED: IPRATROPIUM/ALBUTEROL 0.5-3(2.5)MG/3ML NEB HHN PRN (00:30)
[2022-07-03] MEDS ORDERED: ONDANSETRON HCL 4MG/2ML INJ IV PRN (00:30)
[2022-07-03] MEDS ORDERED: NALOXONE HCL 0.4 MG/ML 1ML VIAL IV PRN (00:30)
[2022-07-03] MEDS ORDERED: DEXTROSE 50% WATER 50ML SYRINGE IV PRN (00:45)
[2022-07-03] MEDS: HYDROCODONE/ACETAMINOPHEN 10/325MG TABLET PO PRN (00:49)
[2022-07-03] MEDS ORDERED: THROAT LOZENGES-BENZOCAINE/MENTH/CETYLPYRD CL LOZENGES MM PRN (01:00)
[2022-07-03 05:47] LABS: CHLORIDE 96 mEq/L (98-107)
[2022-07-03] MEDS: GABAPENTIN 100MG CAPSULE PO SCH ×3 (06:00→22:00)
[2022-07-03 06:28] LABS: MEAN CORPUSCULAR HEMOGLOBIN 25.7 pg (28.0-32.0); MEAN CORPUSCULAR VOLUME 84.5 fL (80.0-94.0); MEAN PLATELET VOLUME 9.4 fl (7.4-10.4); PLATELET 331 x1000/uL (130-400); RED BLOOD CELL COUNT 2.71 mill/uL (4.7-6.1)
[2022-07-03 06:47] LABS: HEMATOCRIT. 22.9 % (42.0-52.0)
[2022-07-03] MEDS: BLOOD SUGAR DIAGNOSTIC STRIP TEST SCH ×4 (07:30→21:07)
[2022-07-03] MEDS: INSULIN LISPRO 100 UNITS/ML SUBCUT SCH ×4 (08:00→20:56)
[2022-07-03 08:41] LABS: BG BASE EXCESS 9.5 mmol/L (-2.0-2.0); BG CARBOXYHEMOGLOBIN 0.9 % (0.5-1.5); BG HCO3 ACT 36.5 mmol/L (22.0-26.0); BG METHEMOGLOBIN 0.3 % (0.0-1.5); BG OXYHEMOGLOBIN 95.8 % (94.0-97.0); BG PCO2 68.6 mmHg (35.0-45.0); BG PH 7.344 (7.350-7.450); BG PO2 102.8 mmHg (75.0-100.0); BG SAMPLE SITE RIGHT RADIAL; BG TOTAL HEMOGLOBIN 7.7 g/dL (12.0-18.0); BG VENT MODE NASAL CANNULA
[2022-07-03] MEDS ORDERED: AMIODARONE HCL 200 MG TABLET PO SCH (09:00)
[2022-07-03] MEDS ORDERED: POTASSIUM CHLORIDE 20MEQ TABLET SR PO NR (09:00)
[2022-07-03] MEDS ORDERED: PREDNISONE 10MG TABLET PO SCH (09:00)
[2022-07-03] MEDS ORDERED: FUROSEMIDE 40MG TABLET PO SCH (09:00)
[2022-07-03] MEDS: SUCRALFATE 1 G/10 ML UDC PO SCH ×4 (11:01→20:50)
[2022-07-03] MEDS: PANTOPRAZOLE SODIUM 40 MG/VIAL IV SCH ×2 (11:02→18:14)
[2022-07-03] MEDS: ASCORBIC ACID 500 MG TABLET PO SCH (11:02)
[2022-07-03] MEDS: FERROUS SULFATE 325MG TABLET PO SCH ×3 (11:02→18:11)
[2022-07-03] MEDS: GUAIFENESIN 600MG ER TABLET PO SCH ×2 (11:03→20:50)
[2022-07-03] MEDS: LACTOBACILLUS GG CAPSULE PO SCH (11:03)
[2022-07-03] MEDS: MIDODRINE HCL 5MG TABLET PO SCH ×3 (11:03→18:14)
[2022-07-03] MEDS: POTASSIUM CHLORIDE 20MEQ TABLET SR PO SCH (11:04)
[2022-07-03] MEDS: METHYLPREDNISOLONE SOD SUCC 40 MG/ML VIAL IV SCH ×2 (13:31→18:11)
[2022-07-03 17:40] LABS: PLATELET ESTIMATE NORMAL
[2022-07-03 17:40] LABS: HEMATOCRIT 26.8 % (42.0-52.0); HEMOGLOBIN 8.4 g/dL (14.0-18.0)
[2022-07-03] MEDS: CEFEPIME 1,000 MG in DEXTROSE 5% WATER 50 ML IV SCH (18:10)
[2022-07-03] MEDS: METRONIDAZOLE 500MG TABLET PO SCH ×2 (18:11→20:50)
[2022-07-03] MEDS: FUROSEMIDE 40MG/4ML VIAL IVP SCH (18:11)
[2022-07-03] MEDS: ATORVASTATIN CALCIUM 40MG TABLET PO SCH (20:50)
[2022-07-03] MEDS: HYDROCODONE/ACETAMINOPHEN 5/325MG TABLET PO PRN (20:52)
[2022-07-04] VITALS (10 sets, daily range): BP systolic 97–115; BP diastolic 48–59
[2022-07-04] MEDS: ACETAZOLAMIDE 250MG TABLET PO SCH ×4 (05:28→20:51)
[2022-07-04] MEDS: GABAPENTIN 100MG CAPSULE PO SCH ×4 (05:28→20:51)
[2022-07-04] MEDS: CEFEPIME 1,000 MG in DEXTROSE 5% WATER 50 ML IV SCH ×3 (05:28→18:01)
[2022-07-04 05:58] LABS: CHLORIDE 99 mEq/L (98-107)
[2022-07-04 06:12] LABS: HEMOGLOBIN. 8.3 g/dL (14.0-18.0); MEAN CORPUSCULAR HEMOGLOBIN 27.1 pg (28.0-32.0); PLATELET 341 x1000/uL (130-400); RED BLOOD CELL COUNT 3.06 mill/uL (4.7-6.1); RED CELL DISTRIBUTION WIDTH 19.5 % (11.6-14.6)
[2022-07-04] MEDS: HYDROCODONE/ACETAMINOPHEN 5/325MG TABLET PO PRN ×2 (06:56→16:58)
[2022-07-04] MEDS: INSULIN LISPRO 100 UNITS/ML SUBCUT SCH ×4 (08:00→20:51)
[2022-07-04] MEDS: BLOOD SUGAR DIAGNOSTIC STRIP TEST SCH ×4 (08:22→20:43)
[2022-07-04] MEDS: FERROUS SULFATE 325MG TABLET PO SCH ×3 (08:46→16:59)
[2022-07-04] MEDS: SUCRALFATE 1 G/10 ML UDC PO SCH ×4 (08:46→20:50)
[2022-07-04] MEDS: AMIODARONE HCL 200 MG TABLET PO SCH (08:46)
[2022-07-04] MEDS: PANTOPRAZOLE SODIUM 40 MG/VIAL IV SCH ×2 (08:46→16:58)
[2022-07-04] MEDS: ASCORBIC ACID 500 MG TABLET PO SCH (08:47)
[2022-07-04] MEDS: POTASSIUM CHLORIDE 20MEQ TABLET SR PO SCH (08:47)
[2022-07-04] MEDS: MIDODRINE HCL 5MG TABLET PO SCH ×3 (08:47→16:59)
[2022-07-04] MEDS: METRONIDAZOLE 500MG TABLET PO SCH ×2 (08:47→20:51)
[2022-07-04] MEDS: FUROSEMIDE 40MG/4ML VIAL IVP SCH ×2 (08:47→16:58)
[2022-07-04] MEDS: GUAIFENESIN 600MG ER TABLET PO SCH ×2 (08:47→20:51)
[2022-07-04] MEDS: METHYLPREDNISOLONE SOD SUCC 40 MG/ML VIAL IV SCH ×2 (08:47→16:58)
[2022-07-04] MEDS ORDERED: POTASSIUM CHLORIDE 20MEQ TABLET SR PO SCH (09:00)
[2022-07-04] MEDS: LACTOBACILLUS GG CAPSULE PO SCH (11:09)
[2022-07-04] MEDS: ALBUTEROL (0.083%) 2.5MG/3ML NEB HHN PRN (12:18)
[2022-07-04] MEDS: IPRATROPIUM BROMIDE (0.02%) 0.5MG/2.5ML NEB HHN PRN (12:18)
[2022-07-04 13:14] LABS: BG BASE EXCESS 7.2 mmol/L (-2.0-2.0); BG CARBOXYHEMOGLOBIN 0.8 % (0.5-1.5); BG DEOXYHEMOGLOBIN 5.1 % (0.0-5.0); BG FRACTION INSPIRED OXYGEN 28; BG HCO3 ACT 33.7 mmol/L (22.0-26.0); BG METHEMOGLOBIN 0.1 % (0.0-1.5); BG OXYGEN SATURATION 94.9 % (92.0-98.5); BG PCO2 59.6 mmHg (35.0-45.0); BG PO2 78.8 mmHg (75.0-100.0); BG SAMPLE SITE RIGHT RADIAL; BG TOTAL HEMOGLOBIN 9.2 g/dL (12.0-18.0); BG VENT MODE NASAL CANNULA
[2022-07-04 17:31] LABS: PLATELET ESTIMATE NORMAL
[2022-07-04] MEDS: ATORVASTATIN CALCIUM 40MG TABLET PO SCH (20:51)
[2022-07-04] MEDS: HYDROCODONE/ACETAMINOPHEN 10/325MG TABLET PO PRN (23:07)
[2022-07-05] VITALS (12 sets, daily range): BP systolic 102–128; BP diastolic 56–72
[2022-07-05] MEDS: GABAPENTIN 100MG CAPSULE PO SCH ×3 (05:01→21:11)
[2022-07-05] MEDS: CEFEPIME 1,000 MG in DEXTROSE 5% WATER 50 ML IV SCH ×2 (05:01→18:12)
[2022-07-05] MEDS: ACETAZOLAMIDE 250MG TABLET PO SCH ×3 (05:01→21:11)
[2022-07-05 06:26] LABS: CHLORIDE 101 mEq/L (98-107)
[2022-07-05 06:39] LABS: HEMATOCRIT. 26.2 % (42.0-52.0); HEMOGLOBIN. 8.4 g/dL (14.0-18.0); MEAN CORPUSCULAR HEMOGLOBIN 27.5 pg (28.0-32.0); MEAN CORPUSCULAR VOLUME 86.2 fL (80.0-94.0); MEAN PLATELET VOLUME 8.9 fl (7.4-10.4); PLATELET 341 x1000/uL (130-400); RED BLOOD CELL COUNT 3.04 mill/uL (4.7-6.1); RED CELL DISTRIBUTION WIDTH 20.1 % (11.6-14.6)
[2022-07-05] MEDS: BLOOD SUGAR DIAGNOSTIC STRIP TEST SCH ×4 (07:30→20:54)
[2022-07-05] MEDS ORDERED: ERGOCALCIFEROL 50000UNITS CAPSULE PO SCH (09:00)
[2022-07-05] MEDS: FUROSEMIDE 40MG/4ML VIAL IVP SCH ×2 (10:04→18:18)
[2022-07-05] MEDS: METHYLPREDNISOLONE SOD SUCC 40 MG/ML VIAL IV SCH ×2 (10:04→18:18)
[2022-07-05] MEDS: PANTOPRAZOLE SODIUM 40 MG/VIAL IV SCH ×2 (10:04→18:18)
[2022-07-05] MEDS: POTASSIUM CHLORIDE 20MEQ TABLET SR PO SCH (10:05)
[2022-07-05] MEDS: GUAIFENESIN 600MG ER TABLET PO SCH ×2 (10:05→21:11)
[2022-07-05] MEDS: FERROUS SULFATE 325MG TABLET PO SCH ×3 (10:05→18:18)
[2022-07-05] MEDS: MIDODRINE HCL 5MG TABLET PO SCH ×3 (10:05→18:18)
[2022-07-05] MEDS: METRONIDAZOLE 500MG TABLET PO SCH ×2 (10:05→21:11)
[2022-07-05] MEDS: SUCRALFATE 1 G/10 ML UDC PO SCH ×4 (10:17→21:11)
[2022-07-05] MEDS: LACTOBACILLUS GG CAPSULE PO SCH (10:17)
[2022-07-05] MEDS: ASCORBIC ACID 500 MG TABLET PO SCH (10:17)
[2022-07-05] MEDS: AMIODARONE HCL 200 MG TABLET PO SCH (10:18)
[2022-07-05] MEDS: LIDOCAINE 5% PATCH TOP SCH (10:30)
[2022-07-05] MEDS: ACETAMINOPHEN 325MG TABLET PO PRN (12:30)
[2022-07-05] MEDS: INSULIN LISPRO 100 UNITS/ML SUBCUT SCH ×3 (13:27→21:11)
[2022-07-05] MEDS: ALBUTEROL (0.083%) 2.5MG/3ML NEB HHN PRN (13:40)
[2022-07-05] MEDS: IPRATROPIUM BROMIDE (0.02%) 0.5MG/2.5ML NEB HHN PRN (13:41)
[2022-07-05 14:10] LABS: NUCLEATED RED BLOOD CELLS 1 /100 WBC
[2022-07-05 14:11] LABS: PLATELET ESTIMATE NORMAL
[2022-07-05] MEDS ORDERED: MESALAMINE 1.2 GM PO SCH (21:00)
[2022-07-05] MEDS: ATORVASTATIN CALCIUM 40MG TABLET PO SCH (21:11)
[2022-07-05] MEDS: HYDROCODONE/ACETAMINOPHEN 10/325MG TABLET PO PRN (22:33)
[2022-07-06] VITALS (12 sets, daily range): BP systolic 105–121; BP diastolic 56–68
[2022-07-06] MEDS: HYDROCODONE/ACETAMINOPHEN 10/325MG TABLET PO PRN ×3 (04:42→23:23)
[2022-07-06] MEDS: ACETAZOLAMIDE 250MG TABLET PO SCH ×3 (05:00→23:15)
[2022-07-06] MEDS: GABAPENTIN 100MG CAPSULE PO SCH ×3 (05:00→23:15)
[2022-07-06] MEDS: CEFEPIME 1,000 MG in DEXTROSE 5% WATER 50 ML IV SCH ×2 (05:00→17:34)
[2022-07-06 06:21] LABS: CHLORIDE 103 mEq/L (98-107)
[2022-07-06] MEDS: INSULIN LISPRO 100 UNITS/ML SUBCUT SCH ×4 (08:00→21:18)
[2022-07-06] MEDS: BLOOD SUGAR DIAGNOSTIC STRIP TEST SCH ×4 (08:14→21:13)
[2022-07-06] MEDS: SUCRALFATE 1 G/10 ML UDC PO SCH ×4 (08:22→21:13)
[2022-07-06] MEDS: METHYLPREDNISOLONE SOD SUCC 40 MG/ML VIAL IV SCH ×2 (08:22→17:33)
[2022-07-06] MEDS: FUROSEMIDE 40MG/4ML VIAL IVP SCH ×2 (08:23→17:33)
[2022-07-06] MEDS: LACTOBACILLUS GG CAPSULE PO SCH (08:23)
[2022-07-06] MEDS: POTASSIUM CHLORIDE 20MEQ TABLET SR PO SCH (08:23)
[2022-07-06] MEDS: PANTOPRAZOLE SODIUM 40 MG/VIAL IV SCH ×2 (08:23→17:33)
[2022-07-06] MEDS: METRONIDAZOLE 500MG TABLET PO SCH ×2 (08:23→21:13)
[2022-07-06] MEDS: AMIODARONE HCL 200 MG TABLET PO SCH (08:23)
[2022-07-06] MEDS: FERROUS SULFATE 325MG TABLET PO SCH ×3 (08:23→17:32)
[2022-07-06] MEDS: ASCORBIC ACID 500 MG TABLET PO SCH (08:23)
[2022-07-06] MEDS: GUAIFENESIN 600MG ER TABLET PO SCH ×2 (08:24→21:13)
[2022-07-06] MEDS: MIDODRINE HCL 5MG TABLET PO SCH ×3 (08:24→17:33)
[2022-07-06] MEDS: LIDOCAINE 5% PATCH TOP SCH (08:25)
[2022-07-06 10:54] LABS: HEMATOCRIT. 29.1 % (42.0-52.0); HEMOGLOBIN. 8.9 g/dL (14.0-18.0); MEAN CORPUSCULAR HEMOGLOBIN 26.8 pg (28.0-32.0); MEAN CORPUSCULAR VOLUME 87.3 fL (80.0-94.0); MEAN PLATELET VOLUME 9.3 fl (7.4-10.4); PLATELET 376 x1000/uL (130-400); RED BLOOD CELL COUNT 3.33 mill/uL (4.7-6.1); RED CELL DISTRIBUTION WIDTH 21.4 % (11.6-14.6)
[2022-07-06] MEDS: ACETAMINOPHEN 325MG TABLET PO PRN (12:35)
[2022-07-06] MEDS ORDERED: MESA1.2T2 PO (12:53)
[2022-07-06] MEDS ORDERED: PRED-431 PO (12:55)
[2022-07-06] MEDS ORDERED: METO2.5T2 PO (12:56)
[2022-07-06] MEDS ORDERED: POTA-205 PO (12:56)
[2022-07-06] MEDS ORDERED: LEFL20TA17 PO (12:57)
[2022-07-06] MEDS ORDERED: FURO40TA5 PO (12:58)
[2022-07-06] MEDS ORDERED: LEVO50TA PO (12:58)
[2022-07-06] MEDS: MESALAMINE 1.2 GM PO SCH (21:12)
[2022-07-06] MEDS: ATORVASTATIN CALCIUM 40MG TABLET PO SCH (21:13)
[2022-07-06] MEDS: ALBUTEROL (0.083%) 2.5MG/3ML NEB HHN SCH (21:36)
[2022-07-07] VITALS (12 sets, daily range): BP systolic 102–123; BP diastolic 52–65
[2022-07-07] MEDS: ALBUTEROL (0.083%) 2.5MG/3ML NEB HHN SCH ×6 (00:50→20:45)
[2022-07-07] MEDS: ACETAMINOPHEN 325MG TABLET PO PRN (02:30)
[2022-07-07] MEDS: CEFEPIME 1,000 MG in DEXTROSE 5% WATER 50 ML IV SCH ×2 (05:53→17:50)
[2022-07-07] MEDS: ACETAZOLAMIDE 250MG TABLET PO SCH ×2 (05:53→12:56)
[2022-07-07] MEDS: GABAPENTIN 100MG CAPSULE PO SCH ×3 (05:53→21:38)
[2022-07-07 07:01] LABS: CHLORIDE 99 mEq/L (98-107)
[2022-07-07 07:17] LABS: HEMATOCRIT. 26.1 % (42.0-52.0); HEMOGLOBIN. 8.1 g/dL (14.0-18.0); MEAN CORPUSCULAR HEMOGLOBIN 27.1 pg (28.0-32.0); MEAN CORPUSCULAR VOLUME 87.6 fL (80.0-94.0); MEAN PLATELET VOLUME 8.9 fl (7.4-10.4); PLATELET 321 x1000/uL (130-400); RED BLOOD CELL COUNT 2.98 mill/uL (4.7-6.1); RED CELL DISTRIBUTION WIDTH 22.2 % (11.6-14.6)
[2022-07-07] MEDS: BLOOD SUGAR DIAGNOSTIC STRIP TEST SCH ×4 (07:33→21:36)
[2022-07-07] MEDS: METHYLPREDNISOLONE SOD SUCC 40 MG/ML VIAL IV SCH ×2 (08:38→17:47)
[2022-07-07] MEDS: FUROSEMIDE 40MG/4ML VIAL IVP SCH ×2 (08:38→17:47)
[2022-07-07] MEDS: LACTOBACILLUS GG CAPSULE PO SCH (08:38)
[2022-07-07] MEDS: SUCRALFATE 1 G/10 ML UDC PO SCH ×4 (08:38→21:01)
[2022-07-07] MEDS: PANTOPRAZOLE SODIUM 40 MG/VIAL IV SCH ×2 (08:38→17:47)
[2022-07-07] MEDS: METRONIDAZOLE 500MG TABLET PO SCH ×2 (08:39→21:02)
[2022-07-07] MEDS: MIDODRINE HCL 5MG TABLET PO SCH ×3 (08:39→17:49)
[2022-07-07] MEDS: MESALAMINE 1.2 GM PO SCH ×2 (08:39→21:04)
[2022-07-07] MEDS: POTASSIUM CHLORIDE 20MEQ TABLET SR PO SCH (08:39)
[2022-07-07] MEDS: ASCORBIC ACID 500 MG TABLET PO SCH (08:39)
[2022-07-07] MEDS: AMIODARONE HCL 200 MG TABLET PO SCH (08:41)
[2022-07-07] MEDS: FERROUS SULFATE 325MG TABLET PO SCH ×3 (08:41→17:47)
[2022-07-07] MEDS: GUAIFENESIN 600MG ER TABLET PO SCH ×2 (08:41→21:02)
[2022-07-07] MEDS: LIDOCAINE 5% PATCH TOP SCH (08:42)
[2022-07-07] MEDS: INSULIN LISPRO 100 UNITS/ML SUBCUT SCH ×4 (08:49→21:38)
[2022-07-07] MEDS ORDERED: KCL 20MEQ/100ML PREMIX 100 ML IV NR (09:00)
[2022-07-07] MEDS: HYDROCODONE/ACETAMINOPHEN 5/325MG TABLET PO PRN ×2 (10:13→19:09)
[2022-07-07 11:16] LABS: NUCLEATED RED BLOOD CELLS 3 /100 WBC; PLATELET ESTIMATE NORMAL
[2022-07-07 16:50] LABS: NUCLEATED RED BLOOD CELLS 3 /100 WBC
[2022-07-07 16:52] LABS: PLATELET ESTIMATE NORMAL
[2022-07-07 18:09] LABS: BG BASE EXCESS 6.9 mmol/L (-2.0-2.0); BG CARBOXYHEMOGLOBIN 0.3 % (0.5-1.5); BG DEOXYHEMOGLOBIN 11.4 % (0.0-5.0); BG FRACTION INSPIRED OXYGEN 21; BG HCO3 ACT 32.3 mmol/L (22.0-26.0); BG METHEMOGLOBIN 1.7 % (0.0-1.5); BG OXYGEN SATURATION 88.4 % (92.0-98.5); BG OXYHEMOGLOBIN 86.6 % (94.0-97.0); BG PCO2 50.6 mmHg (35.0-45.0); BG PH 7.423 (7.350-7.450); BG PO2 56.1 mmHg (75.0-100.0); BG SAMPLE SITE RIGHT BRACHIAL; BG TOTAL HEMOGLOBIN 9.4 g/dL (12.0-18.0); BG VENT MODE ROOM AIR
[2022-07-07] MEDS: IPRATROPIUM BROMIDE (0.02%) 0.5MG/2.5ML NEB HHN PRN (20:45)
[2022-07-07] MEDS: ATORVASTATIN CALCIUM 40MG TABLET PO SCH (21:02)
[2022-07-08] VITALS (15 sets, daily range): BP systolic 104–129; BP diastolic 51–98
[2022-07-08] MEDS: ACETAZOLAMIDE 250MG TABLET PO SCH ×4 (00:12→22:21)
[2022-07-08] MEDS: ALBUTEROL (0.083%) 2.5MG/3ML NEB HHN SCH ×6 (00:15→20:40)
[2022-07-08] MEDS: IPRATROPIUM BROMIDE (0.02%) 0.5MG/2.5ML NEB HHN PRN ×4 (00:16→20:41)
[2022-07-08] MEDS ORDERED: HYDROCODONE/ACETAMINOPHEN 10/325MG TABLET PO NR (01:15)
[2022-07-08] MEDS: CEFEPIME 1,000 MG in DEXTROSE 5% WATER 50 ML IV SCH (05:17)
[2022-07-08] MEDS: GABAPENTIN 100MG CAPSULE PO SCH ×3 (05:19→22:21)
[2022-07-08] MEDS: BLOOD SUGAR DIAGNOSTIC STRIP TEST SCH ×4 (07:30→21:03)
[2022-07-08 08:13] LABS: CHLORIDE 103 mEq/L (98-107)
[2022-07-08] MEDS: INSULIN LISPRO 100 UNITS/ML SUBCUT SCH ×4 (08:41→22:22)
[2022-07-08] MEDS: SUCRALFATE 1 G/10 ML UDC PO SCH ×4 (08:42→21:03)
[2022-07-08] MEDS: POTASSIUM CHLORIDE 20MEQ TABLET SR PO SCH (08:42)
[2022-07-08] MEDS: FUROSEMIDE 40MG/4ML VIAL IVP SCH ×2 (08:42→17:41)
[2022-07-08] MEDS: PANTOPRAZOLE SODIUM 40 MG/VIAL IV SCH ×2 (08:42→17:41)
[2022-07-08] MEDS: METHYLPREDNISOLONE SOD SUCC 40 MG/ML VIAL IV SCH ×2 (08:42→17:41)
[2022-07-08] MEDS: ASCORBIC ACID 500 MG TABLET PO SCH (08:43)
[2022-07-08] MEDS: LACTOBACILLUS GG CAPSULE PO SCH (08:43)
[2022-07-08] MEDS: MIDODRINE HCL 5MG TABLET PO SCH ×3 (08:43→17:41)
[2022-07-08] MEDS: LIDOCAINE 5% PATCH TOP SCH (08:44)
[2022-07-08] MEDS: AMIODARONE HCL 200 MG TABLET PO SCH (08:45)
[2022-07-08] MEDS: GUAIFENESIN 600MG ER TABLET PO SCH ×2 (08:45→21:03)
[2022-07-08] MEDS: FERROUS SULFATE 325MG TABLET PO SCH ×3 (08:46→18:02)
[2022-07-08 08:50] LABS: HEMATOCRIT. 26.8 % (42.0-52.0); HEMOGLOBIN. 8.2 g/dL (14.0-18.0); MEAN CORPUSCULAR HEMOGLOBIN 26.8 pg (28.0-32.0); MEAN CORPUSCULAR VOLUME 87.1 fL (80.0-94.0); MEAN PLATELET VOLUME 9.1 fl (7.4-10.4); PLATELET 293 x1000/uL (130-400); RED BLOOD CELL COUNT 3.08 mill/uL (4.7-6.1); RED CELL DISTRIBUTION WIDTH 22.3 % (11.6-14.6)
[2022-07-08] MEDS: METRONIDAZOLE 500MG TABLET PO SCH (08:50)
[2022-07-08] MEDS: MESALAMINE 1.2 GM PO SCH ×2 (08:50→21:03)
[2022-07-08] MEDS ORDERED: POTASSIUM CHLORIDE 20MEQ TABLET SR PO SCH (09:30)
[2022-07-08] MEDS: HYDROCODONE/ACETAMINOPHEN 10/325MG TABLET PO PRN ×2 (15:44→23:53)
[2022-07-08] MEDS: ATORVASTATIN CALCIUM 40MG TABLET PO SCH (21:03)
[2022-07-09] VITALS (10 sets, daily range): BP systolic 97–120; BP diastolic 45–82
[2022-07-09] MEDS: IPRATROPIUM BROMIDE (0.02%) 0.5MG/2.5ML NEB HHN PRN ×3 (00:48→09:25)
[2022-07-09] MEDS: ALBUTEROL (0.083%) 2.5MG/3ML NEB HHN SCH ×6 (00:48→20:26)
[2022-07-09] MEDS: GABAPENTIN 100MG CAPSULE PO SCH ×3 (05:48→20:39)
[2022-07-09] MEDS: ACETAZOLAMIDE 250MG TABLET PO SCH (05:48)
[2022-07-09] MEDS: BLOOD SUGAR DIAGNOSTIC STRIP TEST SCH ×4 (07:30→20:27)
[2022-07-09] MEDS: AMIODARONE HCL 200 MG TABLET PO SCH (08:53)
[2022-07-09] MEDS: POTASSIUM CHLORIDE 20MEQ TABLET SR PO SCH (08:54)
[2022-07-09] MEDS: LACTOBACILLUS GG CAPSULE PO SCH (08:54)
[2022-07-09] MEDS: ASCORBIC ACID 500 MG TABLET PO SCH (08:55)
[2022-07-09] MEDS: FERROUS SULFATE 325MG TABLET PO SCH ×3 (08:55→17:31)
[2022-07-09] MEDS: GUAIFENESIN 600MG ER TABLET PO SCH ×2 (08:55→20:36)
[2022-07-09] MEDS: MIDODRINE HCL 5MG TABLET PO SCH ×3 (08:55→17:33)
[2022-07-09] MEDS: SUCRALFATE 1 G/10 ML UDC PO SCH ×4 (08:56→20:37)
[2022-07-09] MEDS: MESALAMINE 1.2 GM PO SCH ×2 (08:56→20:36)
[2022-07-09] MEDS: PANTOPRAZOLE SODIUM 40 MG/VIAL IV SCH ×2 (08:58→17:32)
[2022-07-09] MEDS: FUROSEMIDE 40MG/4ML VIAL IVP SCH ×2 (09:00→17:34)
[2022-07-09] MEDS: METHYLPREDNISOLONE SOD SUCC 40 MG/ML VIAL IV SCH (09:03)
[2022-07-09] MEDS: INSULIN LISPRO 100 UNITS/ML SUBCUT SCH ×4 (09:05→20:36)
[2022-07-09] MEDS: ACETAMINOPHEN 500MG TABLET PO PRN ×2 (09:15→17:33)
[2022-07-09] MEDS ORDERED: MEGESTROL ACETATE 40MG TABLET PO NR (12:00)
[2022-07-09] MEDS: LIDOCAINE 5% PATCH TOP SCH (13:00)
[2022-07-09 13:53] LABS: NUCLEATED RED BLOOD CELLS 1 /100 WBC; PLATELET ESTIMATE NORMAL
[2022-07-09 16:07] LABS: HEMATOCRIT. 27.3 % (42.0-52.0); HEMOGLOBIN. 8.4 g/dL (14.0-18.0); MEAN CORPUSCULAR HEMOGLOBIN 26.7 pg (28.0-32.0); MEAN CORPUSCULAR VOLUME 86.1 fL (80.0-94.0); MEAN PLATELET VOLUME 9.1 fl (7.4-10.4); PLATELET 249 x1000/uL (130-400); RED BLOOD CELL COUNT 3.17 mill/uL (4.7-6.1); RED CELL DISTRIBUTION WIDTH 22.1 % (11.6-14.6)
[2022-07-09 16:25] LABS: CHLORIDE 105 mEq/L (98-107)
[2022-07-09 16:56] LABS: NUCLEATED RED BLOOD CELLS 4 /100 WBC
[2022-07-09 16:58] LABS: PLATELET ESTIMATE NORMAL
[2022-07-09] MEDS: HYDROCODONE/ACETAMINOPHEN 10/325MG TABLET PO PRN (19:21)
[2022-07-09] MEDS: ATORVASTATIN CALCIUM 40MG TABLET PO SCH (20:38)
[2022-07-10] VITALS (9 sets, daily range): BP systolic 97–116; BP diastolic 45–65
[2022-07-10] MEDS: ALBUTEROL (0.083%) 2.5MG/3ML NEB HHN SCH ×6 (00:15→16:10)
[2022-07-10] MEDS: GABAPENTIN 100MG CAPSULE PO SCH ×2 (05:10→12:04)
[2022-07-10] MEDS: ACETAMINOPHEN 500MG TABLET PO PRN ×3 (06:18→17:25)
[2022-07-10] MEDS: BLOOD SUGAR DIAGNOSTIC STRIP TEST SCH ×2 (07:30→12:45)
[2022-07-10] MEDS: MESALAMINE 1.2 GM PO SCH (08:18)
[2022-07-10] MEDS: LIDOCAINE 5% PATCH TOP SCH (08:18)
[2022-07-10] MEDS: PANTOPRAZOLE SODIUM 40 MG/VIAL IV SCH ×2 (08:18→17:15)
[2022-07-10] MEDS: AMIODARONE HCL 200 MG TABLET PO SCH (08:19)
[2022-07-10] MEDS: FUROSEMIDE 40MG/4ML VIAL IVP SCH ×2 (08:19→17:15)
[2022-07-10] MEDS: POTASSIUM CHLORIDE 20MEQ TABLET SR PO SCH (08:20)
[2022-07-10] MEDS: LACTOBACILLUS GG CAPSULE PO SCH (08:20)
[2022-07-10] MEDS: ASCORBIC ACID 500 MG TABLET PO SCH (08:20)
[2022-07-10] MEDS: GUAIFENESIN 600MG ER TABLET PO SCH (08:20)
[2022-07-10] MEDS: MIDODRINE HCL 5MG TABLET PO SCH ×3 (08:20→17:18)
[2022-07-10] MEDS: FERROUS SULFATE 325MG TABLET PO SCH ×3 (08:20→17:15)
[2022-07-10] MEDS: INSULIN LISPRO 100 UNITS/ML SUBCUT SCH ×2 (08:33→12:45)
[2022-07-10] MEDS ORDERED: METHYLPREDNISOLONE SOD SUCC 40 MG/ML VIAL IV SCH (09:00)
[2022-07-10] MEDS: SUCRALFATE 1 G/10 ML UDC PO SCH ×3 (09:55→17:15)
[2022-07-10] MEDS ORDERED: HYDROCODONE/ACETAMINOPHEN 5/325MG TABLET PO PRN (10:30)
[2022-07-11] MEDS ORDERED: AMIODARONE HCL 200 MG TABLET PO SCH (09:00)
== END 2022-07-10 17:40 | DRG 871 ==
LOC: 5EST 18:54
PROVIDERS: ADMIT Internal Medicine; ATTEND Internal Medicine
PROC: 5A09357 Assistance with Respiratory Ventilation, Less than 24 Consecutive Hours, Continuous Positive Airway Pressure (ICD-10-PCS; 2022-07-02)
PROC: 30233N1 Transfusion of Nonautologous Red Blood Cells into Peripheral Vein, Percutaneous Approach (ICD-10-PCS; principal; 2022-07-03)
PROC: 5A09357 Assistance with Respiratory Ventilation, Less than 24 Consecutive Hours, Continuous Positive Airway Pressure (ICD-10-PCS; 2022-07-03)
PROC: 5A09357 Assistance with Respiratory Ventilation, Less than 24 Consecutive Hours, Continuous Positive Airway Pressure (ICD-10-PCS; 2022-07-04)
DX: A41.4 Sepsis due to anaerobes (principal); E43 Unspecified severe protein-calorie malnutrition; I21.4 Non-ST elevation (NSTEMI) myocardial infarction; J96.02 Acute respiratory failure with hypercapnia; G93.41 Metabolic encephalopathy; I50.23 Acute on chronic systolic (congestive) heart failure; N17.9 Acute kidney failure, unspecified; N39.0 Urinary tract infection, site not specified; E87.3 Alkalosis; A04.72 Enterocolitis due to Clostridium difficile, not specified as recurrent; I42.9 Cardiomyopathy, unspecified; K57.92 Diverticulitis of intestine, part unspecified, without perforation or abscess without bleeding; J84.9 Interstitial pulmonary disease, unspecified; R65.20 Severe sepsis without septic shock; E86.9 Volume depletion, unspecified; E87.6 Hypokalemia; Z20.822 Contact with and (suspected) exposure to COVID-19; I48.91 Unspecified atrial fibrillation; J10.1 Influenza due to other identified influenza virus with other respiratory manifestations; K80.50 Calculus of bile duct without cholangitis or cholecystitis without obstruction; I25.10 Atherosclerotic heart disease of native coronary artery without angina pectoris; E11.42 Type 2 diabetes mellitus with diabetic polyneuropathy; I45.10 Unspecified right bundle-branch block; I65.23 Occlusion and stenosis of bilateral carotid arteries; M06.9 Rheumatoid arthritis, unspecified; D64.9 Anemia, unspecified; I27.20 Pulmonary hypertension, unspecified; J44.9 Chronic obstructive pulmonary disease, unspecified; G89.29 Other chronic pain; Z88.8 Allergy status to other drugs, medicaments and biological substances; Z87.891 Personal history of nicotine dependence; Z87.11 Personal history of peptic ulcer disease; Z79.899 Other long term (current) drug therapy; Z90.49 Acquired absence of other specified parts of digestive tract; I25.2 Old myocardial infarction; Z68.34 Body mass index [BMI] 34.0-34.9, adult
CPT/HCPCS: 36415; 36600; 71045; 80048; 80053; 80076; 82140; 82270; 82375; 82805; 82962; 83036; 83735; 84145; 85014; 85018; 85025; 85044; 86850; 86900; 86920; 87015; 87045; 87427; 87449; 89055; 93005; 94640; 97110; 97162; 97166; 97530; C9113; J0692; J1815; J1940; J2920; J3480; J7060; J7512; P9016